=== PATIENT | female | born 1985 | race Caucasian/White ===

== ENCOUNTER → 2017-09-04 11:49 | Outpatient (CLI) | payer OTHER, SELFPAY ==
[2017-09-04 12:54] LABS: Absolute Lymphocyte Count 1.41 X10^3/ul (0.83-4.51); Absolute Neutrophil Count 5.1 X10^3/uL (2.0-7.7); Basophil# 0.01 X10^3/uL; Basophil% 0.1 % (0-1); Eosinophil# 0.07 X10^3/uL; Hemoglobin 13.7 g/dl (12.0-15.0); Lymphocyte # 1.41 X10^3/ul (4.0); Lymphocyte % 19.9 % (19-41); Mean Corp Hgb Conc 33.4 g/gl (32-36); Mean Corpuscular Hgb 29.5 pg (27.0-32.0); Mean Corpuscular Volume 88.2 fL (81-99); Monocyte# 0.47 X10^3/uL; Monocyte% 6.6 % (0-10); Neutrophil # 5.12 X10^3/uL (2.7-7.7); Neutrophil % 72.3 % (47-70); Platelet Count 246 K/mm3 (150-450); RBC Distribution Width CV 12.4 % (11.6-14.6); RBC Distribution Width SD 39.4 fl (35.1-43.9); Red Blood Count 4.65 M/mm3 (4.2-5.4); White Blood Count 7.1 K/mm3 (4.4-11.0)
[2017-09-04 13:05] LABS: POSITIVE COUNT NO; POSITIVE DIFFERENTIAL NO; POSITIVE MORPHOLOGY NO
[2017-09-04 14:08] LABS: HIV - WCH Non-Reactive (Nonreactive); Rubella IgG 36.2 IU/mL
[2017-09-04 15:58] LABS: Chlamydia Trachomatis by PCR Negative (Negative); Neisserai gonorrhoeae by PCR Negative (Negative); Probe Check PASS; Sample Adequacy Control PASS; Specimen Processing Control PASS
[2017-09-07 10:22] LABS: HEPATITIS B SURFACE AG Negative (Negative)
[2017-09-08 08:52] LABS: HPV Reflexed? NOT INDICATED
[2017-09-11 02:40] LABS: Rapid Plasmin Reagin (RPR) NONREACTIVE (NONREACTIVE)
== END ==
PROVIDERS: Visit Provider Obstetrics & Gynecology
DX: Z12.4 Encounter for screening for malignant neoplasm of cervix (principal); Z34.80 Encounter for supervision of other normal pregnancy, unspecified trimester
CPT/HCPCS: 85025; 86592; 86703; 86762; 86850; 86900; 86901; 87086; 87088; 87340; 87491; 87591; 88175; G0145

== ENCOUNTER → 2017-10-02 09:55 | Outpatient (CLI) | payer OTHER, SELFPAY | PROVIDERS: Visit Provider Nurse Practitioner Women's Health | DX: Z34.81 Encounter for supervision of other normal pregnancy, first trimester (principal) | CPT/HCPCS: 36415 ==

== ENCOUNTER → 2018-01-29 11:02 | Outpatient (CLI) | payer OTHER, SELFPAY ==
[2018-01-29 10:24] VITALS: BMI 32.1
[2018-01-29 12:57] LABS: Absolute Lymphocyte Count 1.68 X10^3/ul (0.83-4.51); Absolute Neutrophil Count 6.9 X10^3/uL (2.0-7.7); Basophil# 0.01 X10^3/uL; Basophil% 0.1 % (0-1); Eosinophil# 0.11 X10^3/uL; Eosinophils% 1.2 % (0-5); Hematocrit 33.5 % (37-47); Hemoglobin 10.8 g/dl (12.0-15.0); Lymphocyte # 1.68 X10^3/ul (4.0); Lymphocyte % 18.3 % (19-41); Mean Corp Hgb Conc 32.2 g/gl (32-36); Mean Corpuscular Hgb 29.8 pg (27.0-32.0); Mean Corpuscular Volume 92.3 fL (81-99); Mean Platelet Vol. 10.4 fl (6.2-12.0); Monocyte# 0.52 X10^3/uL; Monocyte% 5.7 % (0-10); Neutrophil # 6.86 X10^3/uL (2.7-7.7); Neutrophil % 74.5 % (47-70); POSITIVE COUNT NO; POSITIVE DIFFERENTIAL NO; POSITIVE MORPHOLOGY NO; Platelet Count 243 K/mm3 (150-450); RBC Distribution Width SD 42.4 fl (35.1-43.9); Red Blood Count 3.63 M/mm3 (4.2-5.4); White Blood Count 9.2 K/mm3 (4.4-11.0)
[2018-01-29 13:13] LABS: Glucose Challenge Gest 1H 50g 120 mg/dL (70-140)
--- OUTSIDE RECORDS SUMMARY | 2018-03-26 09:08 | XMS RPT_ITS ---
:1985 Author Organization OHIP Support Name Relationship Address Phone KAROLINA AUGUSTIN Unavailable [address] + [place] [address] NNAMDI MERCHANT Unavailable [address] +[phone] [place] [address], [place] [address] S Unavailable Unavailable Unavailable KAROLINA AUGUSTIN Unavailable [address] [facility] +[phone] [place] [address] NNAMDI MERCHANT Unavailable [address] +[phone] [place] [address], [place] [address] S Unavailable Unavailable Unavailable KAROLINA AUGUSTIN Unavailable . + [place] . NNAMDI MERCHANT Unavailable [address] +[phone] [place] [address], [place] [address] S Unavailable Unavailable Unavailable MERCHANT, MIRYAM Unavailable [address] + [place] [address] KAROLINA AUGUSTIN Unavailable . + [place] . NNAMDI MERCHANT Unavailable [address] + [place] [address] S Unavailable Unavailable Unavailable KAROLINA AUGUSTIN Unavailable . + [place] . NNAMDI MERCHANT Unavailable [address] + [place] [address] S Unavailable Unavailable Unavailable ELIDA MIRYAM Unavailable [address] + [place] [address] KAROLINA AUGUSTIN Unavailable . + [place] . NNAMDI MERCHANT Unavailable [address] + [place] [address] S Unavailable Unavailable Unavailable KAROLINA AUGUSTIN Unavailable Unavailable + [place] NNAMDI MERCHANT Unavailable [address] + [place] [address] S Unavailable Unavailable Unavailable . Unavailable . + [place] [address] NNAMDI MERCHANT Unavailable [address] + [place] [address] . Unavailable . + [place] [address] NNAMDI MERCHANT Unavailable [address] + [place] [address] . Unavailable Unavailable + [place] [address] NNAMDI MERCHANT Unavailable [address] + [place] [address] Care Team Providers Name Role Phone BANG MILLER Attending Unavailable MARCANTHONY, KAROLINA Nugent Referring Unavailable NO PRIMARY CARE, Primary Care Unavailable BANG MILLER Attending Unavailable MARCANTHONY, KAROLINA E Referring Unavailable NO PRIMARY CARE, Primary Care Unavailable Marcanthony, Karolina Attending Unavailable Primay Care Physicia, No Referring Unavailable Marcanthony, Karolina Attending Unavailable Marcanthony, Karolina Attending Unavailable Lucretia, Micaela Attending Unavailable [place], Micaela Attending Unavailable [place], Micaela Referring Unavailable Primay Care Physicia, No Primary Care Unavailable Lucretia, Micaela Attending Unavailable Primay Care Physicia, No Referring Unavailable Marcanthony, Karolina Attending Unavailable Marcanthony, Karolina Attending Unavailable Marcanthony, Karolina Attending Unavailable Marcanthony, Karolina Attending Unavailable Marcanthony, Karolina Referring Unavailable Primay Care Physicia, No Primary Care Unavailable PROBLEMS PROBLEMS DATE TYPE CONDITION / CODE ATTENDING STATUS SOURCE 02/11/2018 Unknown Z3A.30 - 30 weeks Marcanthony, Active [place] gestation of [facility] / Hospital Z3A.30(ICD-10) Repository 02/11/2018 Unknown Z36.9 - Encounter Marcanthony, Active [place] for [facility] screening, [facility] unspecified / Repository Z36.9(ICD-10) 02/11/2018 Unknown Z34.83 - Encounter Marcanthony, Active [place] for supervision of [facility] other normal Hospital , third Repository trimester / Z34.83(ICD-10) 02/11/2018 Unknown O99.019 - Anemia Marcanthony, Active [place] complicating [facility] , Hospital unspecified Repository trimester / O99.019(ICD-10) 01/29/2018 Unknown Z34.90 - Encounter Marcanthony, Active [place] for supervision of [facility] normal , Hospital unspecified, Repository unspecified trimester / Z34.90(ICD-10) 01/29/2018 Unknown Z23 - Encounter Marcanthony, Active [place] for immunization / [facility] Z23(ICD-10) Hospital Repository 01/29/2018 Unknown Z3A.28 - 28 weeks Marcanthony, Active [place] gestation of [facility] / Hospital Z3A.28(ICD-10) Repository 10/30/2017 Unknown Z34.81 - Encounter LucretiaMicaela peraza Active [place] for supervision of [facility] other normal Hospital , first Repository trimester / Z34.81(ICD-10) 10/30/2017 Unknown Z3A.16 - 16 weeks [place] Micaela Active [place] gestation of [facility] / Hospital Z3A.16(ICD-10) Repository 10/02/2017 Unknown Z3A.12 - 12 weeks [place] Micaela Active [place] gestation of [facility] / Hospital Z3A.12(ICD-10) Repository 09/04/2017 Unknown Z34.80 - Encounter Orlandoanthony, Active [place] for supervision of [facility] other normal Hospital , Repository unspecified trimester / Z34.80(ICD-10) 09/04/2017 Unknown Z12.4 - Encounter Orlandoanthnikunj, Active [place] for screening for [facility] malignant neoplasm Hospital of cervix / Repository Z12.4(ICD-10) PROCEDURES PROCEDURES No Procedure Records FoundRESULTS RESULTS WASTE SALVAGER OFFICE VISIT Observed: 02/11/2018 Status: F Source: [place] REPORT 9:46 AM [facility] [place] [facility] [address] [place] [address]. [address] [place] [address] OFFICE VISIT Date of Service: 02/11/18 MR#: [id number] Acct: [id number] Name: MIRYAM MERCHANT Rep #: [id number] : 1985 Provider: Karolina Tolbert MD Age/Sex: 32/F [place] [facility] [place]: Signed Intake Vital Signs02/11/18 Body Mass Index (BMI) 32.1 02/11/18 Height 5 ft 2 in 02/11/18 Weight: 212 lb 8 oz 02/11/18 Body Mass Index (BMI) 38.8 02/11/18 Blood Pressure 116/70 Intake Visit Reasons: est ob 30w Ct Manager Required: No Is patient in pain?: No Allergies No Known Allergies Allergy (Verified 02/11/18 09:17) Medications vitamins no.42-folic acid 1.4 mg chew tablet,IR - DR,biphase 2 tab PO QDAY tab 09/04/17 [History Confirmed 02/11/18] ondansetron HCl 4 mg tablet 4 mg PO Q4H #60 tab 09/24/17 [Rx Confirmed 02/11/18] Last Menstral Period: 07/10/17 Zika: Zika virus screening: Negative : No PFSH PFSH Surgical History Gallbladder AND bile duct stone with obstruction (Acute) Family History Grandfather Cancer liver Grandmother Cancer pancreatic Mother Hypertension Brother ulcerated coilitis Sister ulcerated coilitis Social History adopted: No household members: spouse number of children: 1 current occupational status: employed 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 DateName GA/Weeks Outcome Route Bth WeighInfant GeLabor LgtAnesthesiDel LocatProvider FOB t n h a n HPI est ob 30w: Details: MIRYAM MERCHANT is a 32 year old who presents for routine OB visit. OB Visit HAYDEN Calculator Estimated Delivery Date 04/16/18 Based on LMP (certain) 07/10/17 Current WG 30w 6d Number 1 Expected Delivery Route/Plan Specific Issue/Plans flu vaccine: given tdap vaccine: given rhogam: na LARC form signed: declines labor support person: Nnamdi pain management: epidural cut cord/dad catch: cord only : yes PP control planned: condoms special requests: Initial Weight: 193 lb Date Weight BP Urine PrFHR FuHt Pres MoCTX DilationFetal StVisit NoProviderComments E ot v te [place] G Effac lucose ed Visit Notes Visit Date: 02/11/18 no vb lof good fm no regular ctx discussed zantac for reflux Karolina Tolbert MD on 02/11/18 Visit Date: 01/29/18 no vb lof good fm noregular ctx cbc gct tdap Karolina Tolbert MD on 01/29/18 Visit Date: 12/24/17 no vb lof good fm no regular ctx Karolina Tolbert MD on 12/27/17 Visit Date: 11/27/17 no vb lof some fm. anatomy scan has repeat ordered to view spine, declines afp testing. Karolina Tolbert MD on 11/27/17 Visit Date: 10/30/17 Nausea improved. No VB, LOF. Doing well. LUCIEN Lassiter on 10/30/17 Visit Date: 10/02/17 Doing well. Nausea manageable with zofran. No VB, LOF LUCIEN Lassiter on 10/02/17 Visit Date: 09/04/17 No visit notes to display ACOG First Trimester First Trimester: Desire for , Alcohol, Tobacco Cessation, Illicit/Recreational Drug/Substance Use, Intimate Partner Violence, Barriers to care, Unstable Housing, Communication Barriers, Environmental/Work Hazards, Anticipated Course of Care, Toxoplasmosis Precations, Use of Any medications, Sexual activity, Exercise, Dental Care, Sauna/Hot tub use, Seat Belt use, Childbirth classes/Hospital facilities, , Travel, Indications for US and Screening for Aneuploidy Diagnostics Diagnostics Labs Blood Type A POSITIVE 09/04/17 Antibody Screen NEGATIVE 09/04/17 Hct 33.5 % (37-47) L 01/29/18 Hgb 10.8 g/dl (12.0-15.0) L 01/29/18 Rubella IgG Antibody 36.2 IU/mL 09/04/17 RPR NONREACTIVE (NONREACTIVE) 09/04/17 Hep Bs Antigen Negative (Negative) 09/04/17 Chlam trachomat DNA PCR Negative (Negative) 09/04/17 N.gonorrhoeae DNA (PCR) Negative (Negative) 09/04/17 Glucose 1 Hr 50 gm 120 mg/dL (70-140) 01/29/18 Miscellaneous Test 10/02/17 Details: HIV: Urine Culture: Sequential Screen: NIPT Screen: Results [email or web address] Office Urine Glucose Negative Last Edit by Lola Pittman on 02/11/18 09:15 Office Urine Protein Negative Last Edit by Lola Pittman on 02/11/18 09:15 [email or web address] Office Urine Glucose Negative Last Edit by Lola Pittman on 02/11/18 09:18 Office Urine Protein Negative Last Edit by Lola Pittman on 02/11/18 09:18 Assessment AND Plan Problems 1. 30 weeks gestation of Z3A.30 MFM US anatomy- Normal US needs repeat in 4 weeks d/t spine- repeat 12/24/17- normal. Patient is scheduled. declines carrier and ntd screening. 2. screening encounter Z36.9 NIPT- Low risk, fraction 8.2%, sex: female 3. Encounter for supervision of other normal in third trimester Z34.83 PRR HAYDEN 04/16/17 Girl zan; PC Omer [place] 4. Anemia during O99.019 Recommend starting Iron Plan movement and labor precautions reviewed. ACOG trimester education reviewed and updated. see problem list details for updated plan management information and see below for orders placed at this visit. [place] appropriate handout given. Orders Orders: Coding Level of Care Code OB Routine Diagnoses 30 weeks gestation of Z3A.30 Weeks of gestation: 30 weeks screening encounter Z36.9 Encounter for supervision of other normal in third trimester Z34.83 Normal : other normal Trimester: third trimester Anemia during O99.019 02/11/18 0946 <Electronically signed by Karolina Tolbert MD> Date Karolina Tolbert MD Cosigner Signature: Date (if applicable) CC: CBC W/DIFF, AUTOMATED Collected: 01/29/2018 Status: F Source: [place] 11:25 AM [facility] TYPE CODE TESTS RESULT OUT OF RANGE REFERENCE UNITS LAB L100.1000 4.4-11.0 K/mm3 Normal WBC 9.2 LAB L100.1200 4.2-5.4 M/mm3 Low RBC 3.63 LAB L100.1300 12.0-15.0 g/dl Low HGB 10.8 LAB L100.1400 37-47 % Low HCT 33.5 LAB L100.1500 81-99 fL Normal MCV 92.3 LAB L100.1600 27.0-32.0 pg Normal MCH 29.8 LAB L100.1700 32-36 g/gl Normal MCHC 32.2 LAB L100.1810 11.6-14.6 % Normal RDW CV 13.0 LAB L100.1820 35.1-43.9 fl Normal RDW SD 42.4 LAB L100.1900 150-450 K/mm3 Normal PLT 243 LAB L100.2000 6.2-12.0 fl Normal MPV 10.4 LAB L100.2100 47-70 % High NEUT% 74.5 LAB L100.2200 19-41 % Low LY% 18.3 LAB L100.2300 0-10 % Normal MONO% 5.7 LAB L100.2400 0-5 % Normal EO% 1.2 LAB L100.2500 0-1 % Normal BASO% 0.1 LAB L100.2550 0.0-0.9 % Normal IM GRAN % 0.200 Result Comment: IG% - Immature Granulocytes (promyelocytes, myelocytes and metamyelocytes) > 1% indicates that a LEFT SHIFT is Present. LAB L100.2620 2.0-7.7 X10 3/uL Normal Absolute Neut 6.9 LAB L100.2720 0.83-4.51 X10 3/ul Normal Absolute Lymph 1.68 Performed By: #### L100.0100 #### [facility] [address] [place], [address] GLUCOSE CHALLENGE GEST Collected: 01/29/2018 Status: F Source: [place] 1H 50G 11:25 AM [facility] [place] TYPE CODE TESTS RESULT OUT OF RANGE REFERENCE UNITS LAB L501.0250 70-140 mg/dL Normal GLU GEST 120 50g 1H Performed By: #### L501.0250 #### [facility] [address] [place], [address] WASTE SALVAGER OFFICE VISIT Observed: 01/29/2018 Status: F Source: [place] REPORT 10:51 AM [facility] [place] [facility] [address] [place] [address] OFFICE VISIT Date of Service: 01/29/18 MR#: [id number] Acct: [id number] Name: MIRYAM MERCHANT Rep #: [id number] : 1985 Provider: Karolina Tolbert MD Age/Sex: 32/F [place] [facility] [place]: Signed Intake Vital Signs01/29/18 Height 5 ft 8 in 01/29/18 Weight: 211 lb 8 oz 01/29/18 Body Mass Index (BMI) 32.1 01/29/18 Blood Pressure 118/72 Intake Visit Reasons: 28 weeks Chief Complaint: est ob Ct Manager Required: No Is patient in pain?: No Allergies No Known Allergies Allergy (Verified 01/29/18 10:25) Medications vitamins no.42-folic acid 1.4 mg chew tablet,IR - DR,biphase 2 tab PO QDAY tab 09/04/17 [History Confirmed 12/24/17] ondansetron HCl 4 mg tablet 4 mg PO Q4H #60 tab 09/24/17 [Rx Confirmed 01/29/18] Last Menstral Period: 07/10/17 Zika: Zika virus screening: Negative : No PFSH PFSH Surgical History Gallbladder AND bile duct stone with obstruction (Acute) Family History Grandfather Cancer liver Grandmother Cancer pancreatic Mother Hypertension Brother ulcerated coilitis Sister ulcerated coilitis Social History adopted: No household members: spouse number of children: 1 current occupational status: employed 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 DateName GA/Weeks Outcome Route Bth WeighInfant GeLabor LgtAnesthesiDel LocatProvider FOB t n h a n HPI 28 weeks: Details: MIRYAM MERCHANT is a 32 year old who presents for routine OB visit. OB Visit HAYDEN Calculator Estimated Delivery Date 04/16/18 Based on LMP (certain) 07/10/17 Current WG 29w 0d Number 1 Expected Delivery Route/Plan Specific Issue/Plans flu vaccine: given tdap vaccine: given rhogam: na LARC form signed: lalo labor support person: Nnamdi pain management: epidural cut cord/dad catch: cord only : yes PP control planned: condoms special requests: Initial Weight: 193 lb Date Weight BP Urine PrFHR FuHt Pres MoCTX DilationFetal StVisit NoProviderComments E ot v te [place] G Effac lucose ed Visit Notes Visit Date: 01/29/18 no vb lof good fm noregular ctx cbc gct tdap Karolina Tolbert MD on 01/29/18 Visit Date: 12/24/17 no vb lof good fm no regular ctx Karolina Tolbert MD on 12/27/17 Visit Date: 11/27/17 no vb lof some fm. anatomy scan has repeat ordered to view spine, declines afp testing. Karolina Tolbert MD on 11/27/17 Visit Date: 10/30/17 Nausea improved. No VB, LOF. Doing well. LUCIEN Lassiter on 10/30/17 Visit Date: 10/02/17 Doing well. Nausea manageable with zofran. No VB, LOF LUCIEN Lassiter on 10/02/17 Visit Date: 09/04/17 No visit notes to display ACOG First Trimester First Trimester: Desire for , Alcohol, Tobacco Cessation, Illicit/Recreational Drug/Substance Use, Intimate Partner Violence, Barriers to care, Unstable Housing, Communication Barriers, Environmental/Work Hazards, Anticipated Course of Care, Toxoplasmosis Precations, Use of Any medications, Sexual activity, Exercise, Dental Care, Sauna/Hot tub use, Seat Belt use, Childbirth classes/Hospital facilities, , Travel, Indications for US and Screening for Aneuploidy Diagnostics Diagnostics Labs Blood Type A POSITIVE 09/04/17 Antibody Screen NEGATIVE 09/04/17 Hct 41.0 % (37-47) 09/04/17 Hgb 13.7 g/dl (12.0-15.0) 09/04/17 Rubella IgG Antibody 36.2 IU/mL 09/04/17 RPR NONREACTIVE (NONREACTIVE) 09/04/17 Hep Bs Antigen Negative (Negative) 09/04/17 Chlam trachomat DNA PCR Negative (Negative) 09/04/17 N.gonorrhoeae DNA (PCR) Negative (Negative) 09/04/17 Miscellaneous Test 10/02/17 Details: HIV: Urine Culture: Sequential Screen: NIPT Screen: Results [email or web address] Office Urine Glucose Negative Last Edit by Laura Rivero on 01/29/18 10:33 Office Urine Protein Negative Last Edit by Laura Rivero on 01/29/18 10:33 Immunizations Boostrix Tdap Performing Provider: Karolina Tolbert MD Administered by: Laura Rivero on 01/29/18 10:32 Dose Route Admin Location Lot Number Expiration Date [facility] Meat Process Worker 0.5 mL IM Left Arm (SQ) [id number] 12/19/24 44082-342-36 [employer] VIS Given Date VIS Publication Date 01/29/18 04/25/14 Eligibility Eligibility Date Assessment AND Plan Problems 1. 28 weeks gestation of Z3A.28 MFM US anatomy- Normal US needs repeat in 4 weeks d/t spine- repeat 12/24/17- normal. Patient is scheduled. declines carrier and ntd screening. 2. screening encounter Z36.9 NIPT- Low risk, fraction 8.2%, sex: female 3. Encounter for supervision of other normal in third trimester Z34.83 PRR HAYDEN 04/16/17 Girl zan; PC Omer [place] Plan movement and labor precautions reviewed. ACOG trimester education reviewed and updated. see problem list details for updated plan management information and see below for orders placed at this visit. [place] appropriate handout given. Orders Orders: Medications Discontinued: Boostrix Tdap (diphth,pertus(acell),tetanus) Discontinue0.5 mL IM ONCE 1 mL 0RF NS Z23 d Reason: Office Medication has been Documented as given Coding Level of Care Code OB Routine Diagnoses 28 weeks gestation of Z3A.28 Weeks of gestation: 28 weeks screening encounter Z36.9 Encounter for supervision of other normal in third trimester Z34.83 Normal : other normal Trimester: third trimester 01/29/18 1051 <Electronically signed by Karolina Tolbert MD> Date Karolina Tolbert MD Cosigner Signature: Date (if applicable) CC: WASTE SALVAGER OFFICE VISIT Observed: 12/27/2017 Status: F Source: [place] REPORT 1:47 AM [facility] [address] [place] [address] OFFICE VISIT Date of Service: 12/24/17 MR#: [id number] Acct: [id number] Name: MIRYAM MERCHANT Rep #: [id number] : 1985 Provider: Karolina Tolbert MD Age/Sex: 32/F [place] [facility]: Signed Intake Vital Signs12/24/17 Height 5 ft 8 in 12/24/17 Weight: 206 lb 2 oz 12/24/17 Body Mass Index (BMI) 31.3 12/24/17 Blood Pressure 118/72 Intake Visit Reasons: 24 weeks Chief Complaint: est ob Ct Manager Required: No Is patient in pain?: No Allergies No Known Allergies Allergy (Verified 12/24/17 10:09) Medications vitamins no.42-folic acid 1.4 mg chew tablet,IR - DR,biphase 2 tab PO QDAY tab 09/04/17 [History Confirmed 12/24/17] ondansetron HCl 4 mg tablet 4 mg PO Q4H #60 tab 09/24/17 [Rx Confirmed 12/24/17] Last Menstral Period: 07/10/17 Zika: Zika virus screening: Negative : No PFSH PFSH Surgical History Gallbladder AND bile duct stone with obstruction (Acute) Family History Grandfather Cancer liver Grandmother Cancer pancreatic Mother Hypertension Brother ulcerated coilitis Sister ulcerated coilitis Social History adopted: No household members: spouse number of children: 1 current occupational status: employed 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 DateName GA/Weeks Outcome Route Bth WeighInfant GeLabor LgtAnesthesiDel LocatProvider FOB t n h a n HPI 24 weeks: Details: MIRYAM MERCHANT is a 32 year old who presents for routine OB visit. OB Visit HAYDEN Calculator Estimated Delivery Date 04/16/18 Based on LMP (certain) 07/10/17 Current WG 24w 2d Number 1 Expected Delivery Route/Plan Specific Issue/Plans flu vaccine: [] tdap vaccine: [] rhogam: [] LARC form signed: [] labor support person: Nnamdi pain management: epidural cut cord/dad catch: cord only : yes PP control planned: [] special requests: [] Initial Weight: Not Recorded Date Weight BP Urine PrFHR FuHt Pres MoCTX DilationFetal StVisit NoProviderComments E ot v te [place] G Effac lucose ed Visit Notes Visit Date: 12/24/17 no vb lof good fm no regular ctx Karolina Tolbert MD on 12/27/17 Visit Date: 11/27/17 no vb lof some fm. anatomy scan has repeat ordered to view spine, declines afp testing. Karolina Tolbert MD on 11/27/17 Visit Date: 10/30/17 Nausea improved. No VB, LOF. Doing well. LUCIEN Lassiter on 10/30/17 Visit Date: 10/02/17 Doing well. Nausea manageable with zofran. No VB, LOF LUCIEN Lassiter on 10/02/17 Visit Date: 09/04/17 No visit notes to display ACOG First Trimester First Trimester: Desire for , Alcohol, Tobacco Cessation, Illicit/Recreational Drug/Substance Use, Intimate Partner Violence, Barriers to care, Unstable Housing, Communication Barriers, Environmental/Work Hazards, Anticipated Course of Care, Toxoplasmosis Precations, Use of Any medications, Sexual activity, Exercise, Dental Care, Sauna/Hot tub use, Seat Belt use, Childbirth classes/Hospital facilities, , Travel, Indications for US and Screening for Aneuploidy Diagnostics Diagnostics Labs Blood Type A POSITIVE 09/04/17 Antibody Screen NEGATIVE 09/04/17 Hct 41.0 % (37-47) 09/04/17 Hgb 13.7 g/dl (12.0-15.0) 09/04/17 Rubella IgG Antibody 36.2 IU/mL 09/04/17 RPR NONREACTIVE (NONREACTIVE) 09/04/17 Hep Bs Antigen Negative (Negative) 09/04/17 Chlam trachomat DNA PCR Negative (Negative) 09/04/17 N.gonorrhoeae DNA (PCR) Negative (Negative) 09/04/17 Miscellaneous Test 10/02/17 Details: HIV: Urine Culture: Sequential Screen: NIPT Screen: Office Meds Flucelvax Quad 3814-2122 (PF) Performing Provider: Karolina Tolbert MD Administered by: Laura Rivero on 12/24/17 10:20 Dose Route Admin Location Lot Number Expiration Date [employer]er 60 mcg IM left arm [id number] 08/29/18 33032-773-04 SEQIRUS Assessment AND Plan Problems 1. 23 weeks gestation of Z3A.23 MFM US anatomy- Normal US needs repeat in 4 weeks d/t spine. Patient is scheduled. declines carrier and ntd screening. 2. screening encounter Z36.9 NIPT- Low risk, fraction 8.2%, sex: female 3. Encounter for supervision of other normal in first trimester Z34.81 PRR HAYDEN 2/15/18 Girl; PC Omer [place] Plan ACOG trimester education reviewed and updated. see problem list details for updated plan management information and see below for orders placed at this visit. [place] appropriate handout given. Orders Orders: Medications Discontinued: Flucelvax Quad 1814-2689 (PF) (flu vac qs 2018(4 yr60 mcg (0.5 mL) IM ONCE 1 mL 0RF NS Z23 up)CD(PF)) Discontinued Reason: Office Medicat ion has been Documented as given Coding Level of Care Code OB Routine Diagnoses 23 weeks gestation of Z3A.23 Weeks of gestation: 23 weeks screening encounter Z36.9 Encounter for supervision of other normal in first trimester Z34.81 Normal : other normal Trimester: first trimester 12/27/17 0147 <Electronically signed by Karolina Tolbert MD> Date Karolina Tolbert MD Cosigner Signature: Date (if applicable) CC: WASTE SALVAGER OFFICE VISIT Observed: 11/27/2017 Status: F Source: [place] REPORT 9:42 AM [facility] [address] [place] [address] OFFICE VISIT Date of Service: 11/27/17 MR#: [id number] Acct: [id number] Name: MIRYAM MERCHANT Rep #: [id number] : 1985 Provider: Karolina Tolbert MD Age/Sex: 32/F [place] [facility] [place]: Signed Intake Vital Signs11/27/17 Height 5 ft 8 in 11/27/17 Weight: 200 lb 4 oz 11/27/17 Body Mass Index (BMI) 30.4 11/27/17 Blood Pressure 122/68 H Intake Visit Reasons: [address] Required: No Is patient in pain?: No Allergies No Known Allergies Allergy (Verified 11/27/17 09:33) Medications vitamins no.42-folic acid 1.4 mg chew tablet,IR - DR,biphase 2 tab PO QDAY tab 09/04/17 [History Confirmed 11/27/17] ondansetron HCl 4 mg tablet 4 mg PO Q4H #60 tab 09/24/17 [Rx Confirmed 11/27/17] Last Menstral Period: 07/10/17 Zika: Zika virus screening: Positive (FLA-went to [place]) : No PFSH PFSH Surgical History Gallbladder AND bile duct stone with obstruction (Acute) Family History Grandfather Cancer liver Grandmother Cancer pancreatic Mother Hypertension Brother ulcerated coilitis Sister ulcerated coilitis Social History adopted: No household members: spouse number of children: 1 current occupational status: employed 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 DateName GA/Weeks Outcome Route Bth WeighInfant GeLabor LgtAnesthesiDel LocatProvider FOB t n h a n HPI 20 weeks: Details: MIRYAM MERCHANT is a 32 year old who presents for routine OB visit. OB Visit HAYDEN Calculator Estimated Delivery Date 04/16/18 Based on LMP (certain) 07/10/17 Current WG 20w 0d Number 1 Expected Delivery Route/Plan Specific Issue/Plans flu vaccine: [] tdap vaccine: [] rhogam: [] LARC form signed: [] labor support person: Nnamdi pain management: epidural cut cord/dad catch: cord only : yes PP control planned: [] special requests: [] Initial Weight: Not Recorded Date Weight BP Urine PrFHR FuHt Pres MoCTX DilationFetal StVisit NoProviderComments E ot v te GA G Effac lucose ed Visit Notes Visit Date: 11/27/17 no vb lof some fm. anatomy scan has repeat ordered to view spine, declines afp testing. Karolina Tolbert MD on 11/27/17 Visit Date: 10/30/17 Nausea improved. No VB, LOF. Doing well. CHANTEL LassiterC on 10/30/17 Visit Date: 10/02/17 Doing well. Nausea manageable with zofran. No VB, LOF CHANTEL LassiterC on 10/02/17 Visit Date: 09/04/17 No visit notes to display ACOG First Trimester First Trimester: Desire for , Alcohol, Tobacco Cessation, Illicit/Recreational Drug/Substance Use, Intimate Partner Violence, Barriers to care, Unstable Housing, Communication Barriers, Environmental/Work Hazards, Anticipated Course of Care, Toxoplasmosis Precations, Use of Any medications, Sexual activity, Exercise, Dental Care, Sauna/Hot tub use, Seat Belt use, Childbirth classes/Hospital facilities, , Travel, Indications for US and Screening for Aneuploidy Diagnostics Diagnostics Labs Blood Type A POSITIVE 09/04/17 Antibody Screen NEGATIVE 09/04/17 Hct 41.0 % (37-47) 09/04/17 Hgb 13.7 g/dl (12.0-15.0) 09/04/17 Rubella IgG Antibody 36.2 IU/mL 09/04/17 RPR NONREACTIVE (NONREACTIVE) 09/04/17 Hep Bs Antigen Negative (Negative) 09/04/17 Chlam trachomat DNA PCR Negative (Negative) 09/04/17 N.gonorrhoeae DNA (PCR) Negative (Negative) 09/04/17 Miscellaneous Test 10/02/17 Details: HIV: Urine Culture: Sequential Screen: NIPT Screen: Results [id number] Office Urine Glucose Negative Last Edit by Connie Mark on 11/27/17 09:35 Office Urine Protein Negative Last Edit by Connie Mark on 11/27/17 09:35 Assessment AND Plan Problems 1. 16 weeks gestation of Z3A.16 MFM US anatomy- Normal US needs repeat in 4 weeks d/t spine. Patient is scheduled. declines carrier and ntd screening. 2. Encounter for supervision of other normal in first trimester Z34.81 PRR HAYDEN 04/16/17 Girl; PC Omer Rich 3. screening encounter Z36.9 NIPT- Low risk, fraction 8.2%, sex: female Plan ACOG trimester education reviewed and updated. see problem list details for updated plan management information and see below for orders placed at this visit. GA appropriate handout given. Orders Orders: Coding Level of Care Code OB Routine Diagnoses 16 weeks gestation of Z3A.16 Weeks of gestation: 16 weeks Encounter for supervision of other normal in first trimester Z34.81 Normal : other normal Trimester: first trimester screening encounter Z36.9 11/27/17 0942 <Electronically signed by Karolina Tolbert MD> Date Karolina Tolbert MD Cosigner Signature: Date (if applicable) CC: WASTE SALVAGER OFFICE VISIT Observed: 10/30/2017 Status: F Source: [facility] REPORT 10:19 AM [facility] [address] [place] [address] OFFICE VISIT Date of Service: 10/30/17 MR#: [id number] Acct: [id number] Name: MIRYAM MERCHANT Rep #: [id number] : 1985 Provider: SHALINI Boykin Age/Sex: 32/F [place] [facility] [place]: Signed Intake Vital Signs10/30/17 Height 5 ft 8 in 10/30/17 Weight: 195 lb 8 oz 10/30/17 Body Mass Index (BMI) 29.7 10/30/17 Blood Pressure 122/77 Intake Visit Reasons: [address] Manager Required: No Accompanied by: Is patient in pain?: No Allergies No Known Allergies Allergy (Verified 10/30/17 09:54) Medications vitamins no.42-folic acid 1.4 mg chew tablet,IR - DR,biphase 2 tab PO QDAY tab 09/04/17 [History Confirmed 10/30/17] ondansetron HCl 4 mg tablet 4 mg PO Q4H #60 tab 09/24/17 [Rx Confirmed 10/30/17] Last Menstral Period: 07/10/17 Zika: Zika virus screening: Negative : No PFSH PFSH Surgical History Gallbladder AND bile duct stone with obstruction (Acute) Family History Grandfather Cancer liver Grandmother Cancer pancreatic Mother Hypertension Brother ulcerated coilitis Sister ulcerated coilitis Social History adopted: No household members: spouse number of children: 1 current occupational status: employed 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 DateName GA/Weeks Outcome Route Bth WeighInfant GeLabor LgtAnesthesiDel LocatProvider FOB t n h a n HPI 16 weeks: Details: MIRYAM MERCHANT is a 32 year old who presents for routine OB visit. OB Visit HAYDEN Calculator Estimated Delivery Date 04/16/18 Based on LMP (certain) 07/10/17 Current WG 16w 0d Number 1 Expected Delivery Route/Plan Specific Issue/Plans flu vaccine: [] tdap vaccine: [] rhogam: [] LARC form signed: [] labor support person: Nnamdi pain management: epidural cut cord/dad catch: cord only : yes PP control planned: [] special requests: [] Initial Weight: Not Recorded Date Weight BP Urine PrFHR FuHt Pres MoCTX DilationFetal StVisit NoProviderComments E ot v te GA G Effac lucose ed Visit Notes Visit Date: 10/30/17 Nausea improved. No VB, LOF. Doing well. LUCIEN Lassiter on 10/30/17 Visit Date: 10/02/17 Doing well. Nausea manageable with zofran. No VB, LOF LUCIEN Lassiter on 10/02/17 Visit Date: 09/04/17 No visit notes to display ACOG First Trimester First Trimester: Desire for , Alcohol, Tobacco Cessation, Illicit/Recreational Drug/Substance Use, Intimate Partner Violence, Barriers to care, Unstable Housing, Communication Barriers, Environmental/Work Hazards, Anticipated Course of Care, Toxoplasmosis Precations, Use of Any medications, Sexual activity, Exercise, Dental Care, Sauna/Hot tub use, Seat Belt use, Childbirth classes/Hospital facilities, , Travel, Indications for US and Screening for Aneuploidy Diagnostics Diagnostics Labs Blood Type A POSITIVE 09/04/17 Antibody Screen NEGATIVE 09/04/17 Hct 41.0 % (37-47) 09/04/17 Hgb 13.7 g/dl (12.0-15.0) 09/04/17 Rubella IgG Antibody 36.2 IU/mL 09/04/17 RPR NONREACTIVE (NONREACTIVE) 09/04/17 Hep Bs Antigen Negative (Negative) 09/04/17 Chlam trachomat DNA PCR Negative (Negative) 09/04/17 N.gonorrhoeae DNA (PCR) Negative (Negative) 09/04/17 Miscellaneous Test 10/02/17 Details: HIV: Urine Culture: Sequential Screen: NIPT Screen: Results [id number] Office Urine Glucose Negative Last Edit by Lola Pittman on 10/30/17 09:51 Office Urine Protein Negative Last Edit by Lola Pittman on 10/30/17 09:51 Assessment AND Plan Problems 1. Encounter for supervision of other normal in first trimester Z34.81 PRR HAYDEN 04/16/17 Girl; PC Omer Rich 2. screening encounter Z36.9 NIPT- Low risk, fraction 8.2%, sex: female 3. 16 weeks gestation of Z3A.16 MFM order US anatomy Plan Orders placed: anatomy US with MFM Reviewed of labor precautions, movement/kick counts ACOG trimester education reviewed and updated See problem list details for updated plan of care Gestational age appropriate handout given RTO: 4 weeks Orders Orders: Coding Level of Care Code OB Routine Diagnoses Encounter for supervision of other normal in first trimester Z34.81 Normal : other normal Trimester: first trimester screening encounter Z36.9 16 weeks gestation of Z3A.16 Weeks of gestation: 16 weeks 10/30/17 1019 <Electronically signed by Micaela MCGRAW> Date Micaela MCGRAW Cosigner Signature: Date (if applicable) CC: MISCELLANEOUS LAB Collected: 10/02/2017 Status: F Source: [facility] PROCEDURE 10:08 [place] [facility] [place] Order Comment: Test(s) Ordered: [place] TYPE CODE TESTS RESULT OUT OF RANGE REFERENCE UNITS LAB L801.1541 Normal [facility] [place] [facility] TEST Result Comment: Sent directly to testing facility per ordering physician. 10/12/17 1420 MYOUNG Performed By: #### L801.1541 #### [facility] [address] [place], [address] WASTE SALVAGER OFFICE VISIT Observed: 10/02/2017 Status: F Source: [facility] REPORT 9:48 AM [facility] [place] [facility] [address] [place] [address] OFFICE VISIT Date of Service: 10/02/17 MR#: [id number] Acct: [id number] Name: MIRYAM MERCHANT Rep #: [id number] : 1985 Provider: SHALINI Boykin Age/Sex: 31/F [place] [facility] [place]: Signed Intake Vital Signs10/02/17 Height 5 ft 8 in 10/02/17 Weight: 191 lb 6 oz 10/02/17 Body Mass Index (BMI) 29.0 10/02/17 Blood Pressure 124/80 Intake Visit Reasons: [address] Manager Required: No Is patient in pain?: No Allergies No Known Allergies Allergy (Verified 10/02/17 09:25) Medications vitamins no.42-folic acid 1.4 mg chew tablet,IR - DR,biphase 2 tab PO QDAY tab 09/04/17 [History Confirmed 10/02/17] ondansetron HCl 4 mg tablet 4 mg PO Q4H #60 tab 09/24/17 [Rx Confirmed 10/02/17] Last Menstral Period: 07/10/17 Zika: Zika virus screening: Negative : No PFSH PFSH Surgical History Gallbladder AND bile duct stone with obstruction (Acute) Family History Grandfather Cancer liver Grandmother Cancer pancreatic Mother Hypertension Brother ulcerated coilitis Sister ulcerated coilitis Social History adopted: No household members: spouse number of children: 1 current occupational status: employed 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 DateName GA/Weeks Outcome Route Bth WeighInfant GeLabor LgtAnesthesiDel LocatProvider FOB t n h a n HPI 12 weeks: Details: MIRYAM MERCHANT is a 31 year old who presents for routine OB visit. OB Visit HAYDEN Calculator Estimated Delivery Date 04/16/18 Based on LMP (certain) 07/10/17 Current WG 12w 0d Number 1 Expected Delivery Route/Plan Specific Issue/Plans flu vaccine: [] minichart given: [] tdap vaccine: [] rhogam: [] LARC form signed: [] labor support person: [] pain management: [] cut cord/dad catch: [] : [] PP control planned: [] special requests: [] Initial Weight: Not Recorded Date Weight BP Urine PFHR FuHt Pres MCTX DilatioFetal SVisit NProvideComment rot ov n t ote r s EGA Ef Gluco faced se 09/04/1192 lb 124/76 8 8 oz 8w 0d Visit Notes Visit Date: 10/02/17 Doing well. Nausea manageable with zofran. No VB, LOF Micaela Boykin NP-Apollo on 10/02/17 Visit Date: 09/04/17 No visit notes to display ACOG First Trimester First Trimester: Desire for , Alcohol, Tobacco Cessation, Illicit/Recreational Drug/Substance Use, Intimate Partner Violence, Barriers to care, Unstable Housing, Communication Barriers, Environmental/Work Hazards, Anticipated Course of Care, Toxoplasmosis Precations, Use of Any medications, Sexual activity, Exercise, Dental Care, Sauna/Hot tub use, Seat Belt use, Childbirth classes/Hospital facilities, , Travel, Indications for US and Screening for Aneuploidy Diagnostics Diagnostics Labs Blood Type A POSITIVE 09/04/17 Antibody Screen NEGATIVE 09/04/17 Hct 41.0 % (37-47) 09/04/17 Hgb 13.7 g/dl (12.0-15.0) 09/04/17 Rubella IgG Antibody 36.2 IU/mL 09/04/17 RPR NONREACTIVE (NONREACTIVE) 09/04/17 Hep Bs Antigen Negative (Negative) 09/04/17 Chlam trachomat DNA PCR Negative (Negative) 09/04/17 N.gonorrhoeae DNA (PCR) Negative (Negative) 09/04/17 Details: HIV: Urine Culture: Sequential Screen: NIPT Screen: Results [id number] Office Urine Glucose Negative Last Edit by Connie Mark on 10/02/17 09:27 Office Urine Protein Negative Last Edit by Connie Mark on 10/02/17 09:27 Assessment AND Plan Problems 1. Encounter for supervision of other normal in first trimester Z34.81 HAYDEN 04/16/17 PC Omer Rich 2. 12 weeks gestation of Z3A.12 Plan Orders placed: NIPT Reviewed of labor precautions, movement/kick counts ACOG trimester education reviewed and updated See problem list details for updated plan of care Gestational age appropriate handout given RTO: 4 weeks Orders Orders: Coding Level of Care Code OB Routine Diagnoses Encounter for supervision of other normal in first trimester Z34.81 Normal : other normal Trimester: first trimester 12 weeks gestation of Z3A.12 10/02/17 0948 <Electronically signed by Micaela MCGRAW> Date Micaela Boykin LIVE IN CAREGIVER-C Cosigner Signature: Date (if applicable) CC: CBC W/DIFF, AUTOMATED Collected: 09/04/2017 Status: F Source: [facility] 11:51 AM [facility] [place] TYPE CODE TESTS RESULT OUT OF RANGE REFERENCE UNITS LAB L100.1000 4.4-11.0 K/mm3 Normal WBC 7.1 LAB L100.1200 4.2-5.4 M/mm3 Normal RBC 4.65 LAB L100.1300 12.0-15.0 g/dl Normal HGB 13.7 LAB L100.1400 37-47 % Normal HCT 41.0 LAB L100.1500 81-99 fL Normal MCV 88.2 LAB L100.1600 27.0-32.0 pg Normal MCH 29.5 LAB L100.1700 32-36 g/gl Normal MCHC 33.4 LAB L100.1810 11.6-14.6 % Normal RDW CV 12.4 LAB L100.1820 35.1-43.9 fl Normal RDW SD 39.4 LAB L100.1900 150-450 K/mm3 Normal PLT 246 LAB L100.2000 6.2-12.0 fl Normal MPV 10.0 LAB L100.2100 47-70 % High NEUT% 72.3 LAB L100.2200 19-41 % Normal LY% 19.9 LAB L100.2300 0-10 % Normal MONO% 6.6 LAB L100.2400 0-5 % Normal EO% 1.0 LAB L100.2500 0-1 % Normal BASO% 0.1 LAB L100.2550 0.0-0.9 % Normal IM GRAN % 0.100 Result Comment: IG% - Immature Granulocytes (promyelocytes, myelocytes and metamyelocytes) > 1% indicates that a LEFT SHIFT is Present. LAB L100.2620 2.0-7.7 X10 3/uL Normal Absolute Neut 5.1 LAB L100.2720 0.83-4.51 X10 3/ul Normal Absolute Lymph 1.41 Performed By: #### L100.0100 #### [facility] [address] [place] [address], [address] TYPE AND SCREEN Collected: 09/04/2017 Status: F Source: [place] 11:51 [facility] REPOSITORY Order Comment: Reason for Type AND Screen/Red Cells: Surgery? N TYPE CODE TESTS RESULT OUT OF RANGE REFERENCE UNITS LAB B100.1300 A Normal BLOOD TYPE PT POSITIVE LAB B100.7000 Normal ANTIBODY NEGATIVE SCREEN Performed By: #### B101.7400 #### [facility] [address] [place] [address] RUBELLA IGG Collected: 09/04/2017 Status: F Source: [place] 11:51 [facility] REPOSITORY TYPE CODE TESTS RESULT OUT OF RANGE REFERENCE UNITS LAB L509.4000 IU/mL Normal Rubella IgG 36.2 Result Comment: Antibody results Interpretation of Immune Status < 5 IU/ml Presumed Non-immune 5 - < 10 IU/ml Equivocal > or = 10 IU/ml Presumed Immune Performed By: #### L509.4000, L3890.6005, L700.5000 #### [facility] [address] [place] [address], [address] #### L3100.0390 #### [facility] (refer to report for specific site) refer to report for address and phone number HIV - [facility] Collected: 09/04/2017 Status: F Source: [place] 11:51 [facility] REPOSITORY TYPE CODE TESTS RESULT OUT OF RANGE REFERENCE UNITS LAB L3890.6005 Nonreactive Normal HIV - [facility] Non-Reactive Performed By: #### L509.4000, L3890.6005, L700.5000 #### [facility] [address] [place] [address], [address] #### L3100.0390 #### [facility] (refer to report for specific site) refer to report for address and phone number HEPATITIS B SURFACE Collected: 09/04/2017 Status: F Source: [facility] AG 11:51 AM [facility] [place] TYPE CODE TESTS RESULT OUT OF RANGE REFERENCE UNITS LAB L3100.0400 Negative Normal HB Negative SURF AG Result Comment: Performed at: [facility] [id number] Tar Worker: Josh Morillo PhD, Phone: [phone] Performed By: #### L509.4000, L3890.6005, L700.5000 #### [facility] [address] [place], [place], [address] #### L3100.0390 #### [facility] (refer to report for specific site) refer to report for address and phone number RAPID PLASMIN REAGIN Collected: 09/04/2017 Status: F Source: [facility] (RPR) 11:51 AM [facility] [place] TYPE CODE TESTS RESULT OUT OF REFERENCE UNITS RANGE LAB L700.5000 NONREACTIVE NONREACTIVE Normal RPR Performed By: #### L509.4000, L3890.6005, L700.5000 #### [facility] [address] [place], [place], [address] #### L3100.0390 #### [facility] (refer to report for specific site) refer to report for address and phone number WASTE SALVAGER OFFICE VISIT Observed: 09/04/2017 Status: F Source: [facility] REPORT 11:46 AM [facility] [place] [facility] [address] [place] [address] OFFICE VISIT Date of Service: 09/04/17 MR#: [id number] Acct: [id number] Name: MIRYAM MERCHANT Ion Rep #: [id number] : 1985 Provider: Karolina Tolbert MD Age/Sex: 31/F [place] [facility]: Signed Intake Vital Signs09/04/17 Height 5 ft 8 in 09/04/17 Weight: 193 lb 8 oz 09/04/17 Body Mass Index (BMI) 29.4 09/04/17 Blood Pressure 124/76 Intake Visit Reasons: lmp 07/10/17 Accompanied by: Is patient in pain?: No Allergies No Known Allergies Allergy (Unverified 09/04/17 10:39) Medications vitamins no.42-folic acid 1.4 mg chew tablet,IR - DR,biphase 2 tab PO QDAY tab 09/04/17 [History Confirmed 09/04/17] promethazine 12.5 mg tablet 12.5 mg PO Q6H PRN 09/04/17 [History Confirmed 09/04/17] Last Menstral Period: 07/10/17 Zika: Zika virus screening: Negative Nurse's Note: Pt. 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 DateName GA/Weeks Outcome Route Bth WeighInfant GeLabor LgtAnesthesiDel LocatProvider FOB t n h a n HPI lmp 07/10/17: Details: MIRYAM MERCHANT is a 31 year old who presents for New OB visit. OB Visit HAYDEN Calculator Estimated Delivery Date 04/16/18 Based on LMP (certain) 07/10/17 Current WG 8w 0d Number 1 Comments: crl 16.3mm fht 160 viable single IUP Expected Delivery Route/Plan Specific Issue/Plans flu vaccine: [] minichart given: [] tdap vaccine: [] rhogam: [] LARC form signed: [] labor support person: [] pain management: [] cut cord/dad catch: [] : [] PP control planned: [] special requests: [] Initial Weight: Not Recorded Date Weight BP Urine PrFHR FuHt Pres MoCTX DilationFetal StVisit NoProviderComments E ot v te GA G Effac lucose ed Menstrual History Last Menstral Period: 07/10/17 Reported LMP: definite Normal amount/duration: Yes On hormonal BC at conception: No Antepartum Record Genetic Screening: Congenital Heart Defect: Other, Neural Tube Defect: Other, Hemoglobinopathy Or Carrier: Other, Cystic Fibrosis: Other, Chromosome Abnormality: Other, Zhao-Sachs: Other, Hemophilia: Other, Intellectual Disability/Autism: Other, Recurrent Loss/Stillbirth: Other, Other Structural Defect: Other, Other Genetic Disease: Other, Maternal Metabolic Disorder: Other Infection History: Live with someone with TB or Exposed to TB: No, Patient or Partner has history of Genital Herpes: No, Rash or Viral illness since last mentrual period: No, Prior GBS-Infected child: No, History of STD: No, HIV Infection: No, History of Hepatitis: No, Recent travel outside of : No, Concern for Hep exposure: No, Varicella immune: Yes Medical History Medical History: Negative: Diabetes, Hypertension, Heart disease, Auto-immune disorder, Kidney disease/UTI, Neurologic/epilepsy, Psychiatric, Depression/ depression, Hepatitis/liver disease, Varicosities/phlebitis, Thyroid dysfunction, Trauma/domestic violence, History of blood transfusions, D (Rh) Sensitized, Pulmonary (e.g.,TB,Asthma), Seasonal allergies, Drug/latex allergies/reactions, Breast, Concrete Sculptor surgery, Operations/hospitalizations, Anesthetic complications, History of abnormal pap, Uterine anomaly/jessi, Infertility, Anti-retroviral treatment, Relevant family history, Other ACOG First Trimester First Trimester: Desire for , Alcohol, Tobacco Cessation, Illicit/Recreational Drug/Substance Use, Intimate Partner Violence, Barriers to care, Unstable Housing, Communication Barriers, Environmental/Work Hazards, Anticipated Course of Care, Nurtrition and weight gain, Toxoplasmosis Precations, Use of Any medications, Sexual activity, Exercise, Dental Care, Sauna/Hot tub use, Seat Belt use, Childbirth classes/Hospital facilities, , Travel, Indications for US and Screening for Aneuploidy ROS Const Denies fever(s), Reports system reviewed and no additional complaints, except as docu, Reports fatigue Eyes Reports system reviewed and no additional complaints, except as docu ENT Reports system reviewed and no additional complaints, except as docu Card Denies chest pain, Denies shortness of breath Resp Reports system reviewed and no additional complaints, except as docu, Denies shortness of breath, Denies cough GI Reports nausea, Denies abdominal pain Reports system reviewed and no additional complaints, except as docu Musc Reports system reviewed and no additional complaints, except as docu Skin/Breast Reports system reviewed and no additional complaints, except as docu Neuro Yes system reviewed and no additional complaints, except as docu Psych Reports system reviewed and no additional complaints, except as docu Endo Reports fatigue, Reports system reviewed and no additional complaints, except as docu Exam Const General: healthy appearing, comfortable, no acute distress Orientation: alert [facility] Head: normal to inspection, atraumatic, normocephalic Ears: external ears normal, hearing grossly normal bilaterally Nose: nares normal, external nose normal Mouth: oral mucosae normal Teeth and gingiva: dentition normal Eyes General: appearance normal, both eyes and all related structures Neck Neck: no lymphadenopathy, supple, normal visual inspection Thyroid: thyroid normal Chest Chest palpation AND inspection: normal inspection of the chest Breast inspection: normal inspection of the breasts, normal inspection of the axillae Breast palpation: normal palpation of the breasts, normal palpation of the axillae Resp Effort AND Inspection: normal respiratory effort GI Inspection: normal to inspection Palpation: soft, no hepatosplenomegaly General: bladder normal to palpation External Female Exam: normal external appearance, normal appearance of the urethra Urethra: normal appearance of the urethra Speculum Exam - Vagina: normal appearance of the vagina, normal vaginal discharge Speculum Exam - Cervix: normal appearance of the cervix Bimanual Exam- Vagina AND Uterus: bladder normal to palpation, normal bimanual exam, uterus non-tender, other Bimanual Exam- Adnexa, other: adnexae non-tender Skin General: no rashes or lesions noted Neuro Motor: muscle tone normal throughout, no movement abnormalities noted Extrem General: normal to inspection, full ROM Assessment AND Plan Problems 1. Encounter for supervision of other normal in first trimester Z34.81 HAYDEN 04/16/17 PC Omer Rich Plan Patient oriented to practice and discussed care expectations and screenings. [facility] [place] offered [place]. labs and 19-20 week anatomy ultrasound ordered. see problem list details for plan information. Genetic screening offered to patient and patient chose: discussed and to decide Orders Orders: Supplemental Info ACOG book given and patient encouraged to read about nutrition, exercise, weight gain, and food avoidance in . Coding Level of Care Code OB Routine Diagnoses Encounter for supervision of other normal in first trimester Z34.81 Normal : other normal Trimester: first trimester 09/04/17 1146 <Electronically signed by Karolina Tolbert MD> Date Karolina Tolbert MD Cosigner Signature: Date (if applicable) CC: CT/NG WCH BY PCR Collected: 09/04/2017 Status: F Source: [place] 10:20 AM [facility] [place] CODE TESTS RESULT OUT OF RANGE REFERENCE UNITS LAB L8200.2100 Negative Normal Chlam Negative Trac PCR LAB L8200.2200 Negative Normal NG by Negative PCR Performed By: #### L8200.2000 #### [facility] [address] [facility] [place], [place], [address] Observed: 09/04/2017 Status: F Source: [place] CULTURE, URINE 10:20 AM [facility] [place] Urine Culture ORGANISM 1: Mixed Gram Positive Organisms [place] Count 1000-10,000 MIX CULTURE Mixed contaminants. Submit a new specimen if indicated. Performed By: #### M100.0650 #### [facility] [address] [facility] [place], [address] PAP I-G W/RFX Collected: 09/04/2017 Status: F Source: [place] HRHPV-APTIMA 10:20 AM [facility] [place] Order Comment: CYTOLOGY INFORMATION: - CLINICAL INFORMATION: - DATE LMP/MENOPAUSE: 07-10-17 LMP - COLLECTION VIAL: Thin Prep Vial - DIRECTOR OF SOFTWARE DEVELOPMENT SOURCE: CERVICAL - COLLECTION TECHNIQUE: CX BROOM ONLY Specimen Comment: [id number] Specimen Comment: No. of containers..01 ThinPrep Vial TYPE CODE TESTS RESULT OUT OF RANGE REFERENCE UNITS LAB L7400.0800 . Normal DIAGN Comment Result Comment: NEGATIVE FOR INTRAEPITHELIAL LESION AND MALIGNANCY. LAB L7400.0900 . Normal ADEQ Comment Result Comment: Satisfactory for evaluation. Endocervical and/or squamous metaplastic cells (endocervical component) are present. LAB L7400.1400 . Normal PERFORM Comment Result Comment: Mala Mcdonald Product Technician (ASCP) LAB L7400.2575 . Normal TEST METHOD Comment Result Comment: This liquid based ThinPrep(R) pap test was screened with the use of an image guided system. LAB L7400.2600 . Normal . COMM LAB L7400.2700 . Normal PAPSMR Comment Result Comment: The Pap smear is a screening test designed to aid in the detection of premalignant and malignant conditions of the uterine cervix. It is not a diagnostic procedure and should not be used as the sole means of detecting cervical cancer. Both false-positive and false-negative reports do occur. LAB L7400.2800 . Normal HPV RFLX Comment Result Comment: The HPV DNA reflex criteria were not met with this specimen result therefore, no HPV testing was performed. Performed at: - [facility] [id number] Tar Worker: Lydia Haque MD, Phone: [phone] Performed By: #### L7400.0353 #### [facility] (refer to report for specific site) refer to report for address and phone number PROGRESS Observed: 07/29/2017 Status: COMPLETED Source: [place] 12:54 PM [facility] [place] REPOSITORY HNO ID: [id number] Author: Roxy Taylor Provider Service: (none) Author Type: Physician Type: Progress Notes Filed: 07/29/2017 8:58 AM Note Text: null (CCF:Not available [id number]) Visit Summary for Miryameverton Merchant - Gender: Female - Date of : 1985 ( ) Date: [id number] - Duration: 3 minutes Patient: Miryam Merchant Provider: Anderson Guevara Patient Contact Information Address [address] [place] [address]; [place] [phone] Visit Topics Poison abigail treatment [Added By: Self - 2017-07-29] Triage Questions Please provide your current address. We need this on file in case of a medical emergency.Answer [[address] [place] [address]] Conversation Transcripts [Notification] You are connected with Anderson Guevara, Family Physician.[Notification] Patient has shared 1 file[Notification] Miryam Merchant is located in [place].[Notification] Miryam Merchant has shared health history...[Notification] Anderson Guevara has added a diagnosis/procedure code (see the Visit Notes tab).[Notification] Anderson Guevara has added a diagnosis/procedure code (see the Visit Notes tab).[Notification] Anderson Guevara has added a prescription (see the Visit Notes tab). Diagnosis Unspecified contact dermatitis due to plants, except food Value: L25.5 Code: ICD-10-CM Procedures Value: 29691 Code: CPT-4 ONLINE E/M BY PHYS/QHP Medications Prescribed prednisone Strength : 20 mg Frequency : Patient Instructions : 2 tabs daily for 7 days then 1 tab daily Refills : 0 Instructions to the Pharmacist : Substitutions allowed Provider Notes We strongly encourage you to share the following record of today's visit with your primary care physician. Contact phone number:Mode of Communication: Video and pictures HPI: This week patient has developed acute onset of red, itchy, rash with blisters over areas of exposed extremities. No shortness of breath, swelling, warmth, fever or wheeze. PMH: NonePSH: gallbladderMeds: NoneAllergies: NKMALMP: 2 weeks agoExam:Gen: Well appearing, in no acute distressSkin: Multiple patches of erythema with moist vesicles over exposed extremitiesAssessment: Poison abigail, too diffuse for topical treatment Diagnosis Code: Contact dermatitis/eczema due to plants, except food L25.5Plan: 1.Medication as described belowPrednisone 20mg 2 tabs daily for 7 days, then 1 tab daily for 7 days2.Discussed options as well as precautionsFollow up:1.If there are any questions or problems with the prescription, call [phone] at any time for assistance. 2.Please re-connect for another online visit or see an in-person provider should your symptoms worsen or not improving 5-7days. The rash, and itching may wax and wane during this time. 3.Please print a copy of this note and send it to your regular doctor, or take it to your next visit so it may be included in your medical record. Patient voiced understanding and agrees to plan. Please see your PCP on an annual basis Electronically signed by: Anderson Guevara( ) TRACI Observed: 02/27/2017 Status: COMPLETED Source: [place] 10:15 AM [facility] REPOSITORY Office Visit ([place]) MIRYAM MERCHANT ([id number]) 1985 F Date Time Provider Department 02/27/17 10:15 AM JEAN BHAKTA) RUSTY During your visit today, we recorded the following information about you: Temperature Pulse Respiration Blood pressure 98.3 degrees 83/minute 18/minute 136/80 Weight Height Last Period 88.5 kg 1.702 m 02/10/17 Jean Bhakta PA-C, PA 02/27/2017 10:23 AM Signed 02/27/2017 Patient presents with: Cough: x 3 weeks SUBJECTIVE: This is a 31 year old that is here today for acute onset cough x 3 weeks, but with no wheezing, shortness of breath, increased WOB, or chest pain. . Denies fever, chills, sweats, or fatigue. Asthma: none Pneumonia: none Tobacco: none Pain on scale of 0-10 with 0 being no pain and 10 being greatest pain: 0 Nothing makes the symptoms better. Nothing makes them worse. Self-treatment:. Mucinex, williamqujaqui The severity is mild and the symptoms are not improving. The patient did not have a similar problem in the last 3 months. The patient did not take any antibiotics in the last 3 months. Barriers to learning: none. Reviewed meds, OTCs, herbals or supplements. Reviewed allergies, medications, and past medical history.. No past medical history on file. ALLERGIES Review of patient's allergies indicates no known allergies. MEDICATIONS No current outpatient prescriptions on file. No current facility-administered medications for this visit. Medications and allergies reviewed by this provider. SOCIAL HISTORY Social History Marital status: Spouse name: Years of education: Number of children: Social History Main Topics Smoking status: Never Smoker Smokeless status: Never Used REVIEW OF SYSTEMS Review of Systems ROS: constitutional-neg, heent-neg, heart-neg, respiratory- cough, skin-neg, lymph-neg, neuro-neg, - All systems neg except as noted above in HPI. OBJECTIVE: BP 136/80 Pulse 83 Temp 36.8 ?C (98.3 ?F) Resp 18 Ht 170.2 cm (5' 7ANDquot;) Wt 88.5 kg (195 lb) LMP 02/10/2017 SpO2 100% BMI 30.54 kg/m2. Vital signs reviewed by this provider. Physical Exam AAOx3, no acute distress, patient is pleasant, well groomed, dressed appropriately. General: WD, WN, NAD, alert. HEENT: No facial erythema or swelling. Eyes: PERRL. EOMI. No erythema or discharge. -Ears: TMs pearly renteria with light reflex, ear canals not red or swollen. Small effusion bilaterally. -Nose-nasal mucosa pink and no discharge/polyps, nasal septum midline. -Throat: pharynx pink with no edema/mass/exudate/erythema, buccal mucosa pink and moist with no lesions. Post nasal drainage present on posterior pharynx. Head: maxillary tenderness noted upon palpation. Neck: no masses or lymphadenopathy. Chest: CTA bilaterally with equal breath sounds; good air exchange throughout. No wheezing, rhonchi, or crackles; no retractions, tripoding, or nasal flaring noted. Heart: RRR, no murmur, rub, or gallop.. ASSESSMENT/PLAN: 1. Acute bacterial bronchitis - ICD9: 466.0, 041.9, ICD10: J20.8, B96.89 - AZITHROMYCIN 250 MG TABLET - PREDNISONE 20 MG TABLET - ALBUTEROL SULFATE HFA 90 MCG/ACTUATION AEROSOL INHALER Encourage fluids, rest. Tylenol and Motrin for pain and fever. If you have a fever rotate between the Tylenol and Motrin every 3 hours. Saline Nasil spray, Neti Pot, vaporizer, Vicks. Try Cepocol lozenges or Chloraseptic throat spray. Warm salt water gargles. Cough and deep breath- 10x/hr while awake. May use OTC Mucinex DM as directed for cough Take entire course of Antibiotics. Call PCP if sx worsen or no better. If symptoms worsen, or new symptoms develop go to ER. If you have worsening of breathing or breathing changes- go to ER. If you have persistent fever unrelieved by Tylenol/Motrin- go to the ER. Follow up as needed. The patient verbalizes understanding and is in agreement with plan of care. Barriers to learning: none. JACKELINE Donato PA-C, ANUJ 02/27/2017 10:10 AM Signed ASSESSMENT/PLAN: 1. Acute bacterial bronchitis - - AZITHROMYCIN 250 MG TABLET - PREDNISONE 20 MG TABLET - ALBUTEROL SULFATE HFA 90 MCG/ACTUATION AEROSOL INHALER Encourage fluids, rest. Tylenol and Motrin for pain and fever. If you have a fever rotate between the Tylenol and Motrin every 3 hours. Saline Nasil spray, Neti Pot, vaporizer, Vicks. Try Cepocol lozenges or Chloraseptic throat spray. Warm salt water gargles. Cough and deep breath- 10x/hr while awake. May use OTC Mucinex DM as directed for cough Take entire course of Antibiotics. Call PCP if sx worsen or no better. If symptoms worsen, or new symptoms develop go to ER. If you have worsening of breathing or breathing changes- go to ER. If you have persistent fever unrelieved by Tylenol/Motrin- go to the ER. Follow up as needed. The patient verbalizes understanding and is in agreement with plan of care. Barriers to learning: none. Jean Bhakta PA-C Referring Provider: SELF [200] Allergies As of Date: 02/27/2017 (No Known Allergies) Date Reviewed: 02/27/2017 Reviewed by: Stacie Deng Ma - Fully Assessed Reason for Visit: Cough [28] Cmt: x 3 weeks Primary Visit Diagnosis:Acute bacterial bronchitis [J20.8, B96.89] Order(s):azithromycin (ZITHROMAX) 250 mg tabletTake 1 tablet by mouth as directed. Take 2 tablets by mouth on Day 1, then 1 tablet by mouth every day thereafter for 4 daysDisp: 6 tabletRfl: 0 predniSONE (DELTASONE) 20 mg tabletTake 2 tablets by mouth once daily for 5 days.Disp: 10 tabletRfl: 0 albuterol HFA (PROAIR HFA) 90 mcg/actuation inhalerInhale 2 Puffs as instructed every 4 hours as needed.Disp: 1 InhalerRfl: 0 Prescriptions as of 02/27/2017 Sig: AZITHROMYCIN 250 MG TABLET Take 1 tablet by mouth as dir* PREDNISONE 20 MG TABLET Take 2 tablets by mouth once * ALBUTEROL SULFATE HFA 90 MCG/* Inhale 2 Puffs as instructed * Problem List As Of Date: 02/27/2017 (None) Other instructions from your clinician: ASSESSMENT/PLAN: 1. Acute bacterial bronchitis - - AZITHROMYCIN 250 MG TABLET - PREDNISONE 20 MG TABLET - ALBUTEROL SULFATE HFA 90 MCG/ACTUATION AEROSOL INHALER Encourage fluids, rest. Tylenol and Motrin for pain and fever. If you have a fever rotate between the Tylenol and Motrin every 3 hours. Saline Nasil spray, Neti Pot, vaporizer, Vicks. Try Cepocol lozenges or Chloraseptic throat spray. Warm salt water gargles. Cough and deep breath- 10x/hr while awake. May use OTC Mucinex DM as directed for cough Take entire course of Antibiotics. Call PCP if sx worsen or no better. If symptoms worsen, or new symptoms develop go to ER. If you have worsening of breathing or breathing changes- go to ER. If you have persistent fever unrelieved by Tylenol/Motrin- go to the ER. Follow up as needed. The patient verbalizes understanding and is in agreement with plan of care. Barriers to learning: none. Jean Bhakta PA-C Prescriptions ordered this encounter Disp Refills Start End AZITHROMYCIN 250 MG TABLET 6 ta* 0 02/27/2017 Route: ORAL Sig: Take 1 tablet by mouth as directed. Take 2 tablets by mouth on Day 1, then 1 tablet by mouth every day thereafter for 4 days PREDNISONE 20 MG TABLET 10 t* 0 02/27/2017 03/04/2017 Route: ORAL Sig: Take 2 tablets by mouth once daily for 5 days. ALBUTEROL SULFATE HFA 90 MCG/ACTUATI* 1 In* 0 02/27/2017 Route: INHALATION Sig: Inhale 2 Puffs as instructed every 4 hours as needed. Encounter Status:Closed by JEAN BHAKTA on 02/27/17 PROGRESS Observed: 02/27/2017 Status: COMPLETED Source: [place] [address]:06 AM [facility] REPOSITORY HNO ID: [id number] Author: Jean Santos (Jackeline) ANUJ Bhakta Service: (none) Author Type: Physician Car Wash Supervisor Type: Progress Notes Filed: 02/27/2017 10:23 AM Note Text: 02/27/2017 Patient presents with: Cough: x 3 weeks SUBJECTIVE: This is a 31 year old that is here today for acute onset cough x 3 weeks, but with no wheezing, shortness of breath, increased WOB, or chest pain. . Denies fever, chills, sweats, or fatigue. Asthma: none Pneumonia: none Tobacco: none Pain on scale of 0-10 with 0 being no pain and 10 being greatest pain: 0 Nothing makes the symptoms better. Nothing makes them worse. Self-treatment:. Mucinex, nyquik The severity is mild and the symptoms are not improving. The patient did not have a similar problem in the last 3 months. The patient did not take any antibiotics in the last 3 months. Barriers to learning: none. Reviewed meds, OTCs, herbals or supplements. Reviewed allergies, medications, and past medical history.. No past medical history on file. ALLERGIES Review of patient's allergies indicates no known allergies. MEDICATIONS No current outpatient prescriptions on file. No current facility-administered medications for this visit. Medications and allergies reviewed by this provider. SOCIAL HISTORY Social History Marital status: Spouse name: Years of education: Number of children: Social History Main Topics Smoking status: Never Smoker Smokeless status: Never Used REVIEW OF SYSTEMS Review of Systems ROS: constitutional-neg, heent-neg, heart-neg, respiratory-cough, skin-neg, lymph-neg, neuro-neg, - All systems neg except as noted above in HPI. OBJECTIVE: BP 136/80 Pulse 83 Temp 36.8 ?C (98.3 ?F) Resp 18 Ht 170.2 cm (5' 7) Wt 88.5 kg (195 lb) LMP 02/10/2017 SpO2 100% BMI 30.54 kg/m2. Vital signs reviewed by this provider. Physical Exam AAOx3, no acute distress, patient is pleasant, well groomed, dressed appropriately. General: WD, WN, NAD, alert. HEENT: No facial erythema or swelling. Eyes: PERRL. EOMI. No erythema or discharge. -Ears: TMs pearly renteria with light reflex, ear canals not red or swollen. Small effusion bilaterally. -Nose-nasal mucosa pink and no discharge/polyps, nasal septum midline. -Throat: pharynx pink with no edema/mass/exudate/erythema, buccal mucosa pink and moist with no lesions. Post nasal drainage present on posterior pharynx. Head: maxillary tenderness noted upon palpation. Neck: no masses or lymphadenopathy. Chest: CTA bilaterally with equal breath sounds; good air exchange throughout. No wheezing, rhonchi, or crackles; no retractions, tripoding, or nasal flaring noted. Heart: RRR, no murmur, rub, or gallop.. ASSESSMENT/PLAN: 1. Acute bacterial bronchitis - ICD9: 466.0, 041.9, ICD10: J20.8, B96.89 - AZITHROMYCIN 250 MG TABLET - PREDNISONE 20 MG TABLET - ALBUTEROL SULFATE HFA 90 MCG/ACTUATION AEROSOL INHALER Encourage fluids, rest. Tylenol and Motrin for pain and fever. If you have a fever rotate between the Tylenol and Motrin every 3 hours. Saline Nasil spray, Neti Pot, vaporizer, Vicks. Try Cepocol lozenges or Chloraseptic throat spray. Warm salt water gargles. Cough and deep breath- 10x/hr while awake. May use OTC Mucinex DM as directed for cough Take entire course of Antibiotics. Call PCP if sx worsen or no better. If symptoms worsen, or new symptoms develop go to ER. If you have worsening of breathing or breathing changes- go to ER. If you have persistent fever unrelieved by Tylenol/Motrin- go to the ER. Follow up as needed. The patient verbalizes understanding and is in agreement with plan of care. Barriers to learning: none. Jean Bhakta PA-C ALLERGIES ALLERGIES DATE TYPE / CODE NAME / CODE REACTION SEVERITY SOURCE 02/11/2018 Drug No Known Unknown [facility] Allergy/4160 Allergies/F00 [facility] 12164(SNOMED [id number](RXNOR Repository CT) M) ENCOUNTERS ENCOUNTERS ADMIT/DISCHARGE ACCOUNT ADMITTING ENCOUNTER LOCATION SOURCE NUMBER CLASS 02/11/2018/02/12/20 [id number] Ambulatory BMSBuilding:Vi Jenkins [facility] Repository 01/29/2018 [id number] [facility] Rep[facility] 01/29/2018/01/30/20 [id number] Ambulatory BMSBuilding:B Ring[place] [address] [facility] Repository 12/24/2017/12/25/19 [id number] Ambulatory Building:[address] Repository 12/24/2017/12/25/19 [id number] Ambulatory BMSBuilding:B [place] [address] [facility] Repository 11/27/2017/11/28/19 [id number] Ambulatory BMSBuilding:Vi [place] [address] [facility] Repository 11/23/2017 [id number] Ambulatory Building:[facility] Repository 10/30/2017/10/31/19 [id number] Ambulatory BMSBuilding:Vi [place] [address] [facility] Repository 10/02/2017 [id number] [facility] Rep[facility] 10/02/2017/10/03/19 [id number] Ambulatory BMSBuilding:Vi [place] [address] [facility] Repository 09/04/2017 [id number] [facility] Repository 09/04/2017/09/05/19 [id number] Ambulatory BMSBuilding:Vi Jenkins [address] [facility] Repository 02/27/2017/02/28/20 [id number] Ambulatory [address] Repository PAYERS PAYERS ENCOUNTER GUARANTOR PAYER SUBSCRIBER SOURCE 02/11/2018 MIRYAM J Primary TAMMY Jenkins [id number] Insurance:MEDICAL DAVIESDOB: [id number] Number: [place], [place] [id number] [id number]: 269) Date:5378-23-62XK [phone] () [address], [place] [address]ZG: 02/11/2018 Secondary NOT GIVENUNK Gregory Insurance:SELF PAY [facility] Number: Effective Repository Date:2018-02-11 01/29/2018 MIRYAM J Primary TAMMY Jenkins [id number] Insurance:MEDICAL DAVIESDOB: [facility] [id number][facility] Number: [place]ository [place] [id number]: ([phone]) Date:9960-74-58VZ [phone] () [address] [place] [address]NP: 01/29/2018 Secondary NOT GIVENUNK [place] Insurance:SELF PAY [facility] Number: Effective Repository Date:2018-01-29 01/29/2018 MIRYAM J Primary TAMMY Jenkins [id number] Insurance:MEDICAL DAVIESDOB: [facility] [id number]-[facility] Number: [place] [id number]: ([phone]) Date:1819-42-81QN [phone] () [address], [place] [address]MF: 01/29/2018 Secondary NOT GIVENUNK [place] Insurance:SELF PAY [facility] Number: Effective Repository Date:2018-01-29 12/24/2017 MIRYAM DAVIESDOB: Primary MIRYAM DAVIESDOB: [place] [id number] Insurance:MEDICAL [id number] [facility] Number: [facility]GED WITH [facility] Repository [place] [id number] [phone]: ([phone]) Date: [id number] (HP) 12/24/2017 MIRYAM J Primary TAMMY Jenkins [id number] Insurance:MEDICAL DAVIESDOB: [facility] [id number]-[facility]insula [facility] Number: [place] [id number]: ([phone]) Date:0887-75-81RO [phone] (HP) [address], [place] [address]GO: 12/24/2017 Secondary NOT GIVENUNK Gregory Insurance:SELF PAY [facility] Number: Effective Repository Date:2017-12-24 11/27/2017 MIRYAM J Primary TAMMY Ringoes [id number] Insurance:MEDICAL DAVIESDOB: [facility] [id number]-Peninsula Medical Center Number: [place] [id number]: ([phone]) Date:5286-89-85UT [phone] () [address], [place] [address]KT: 11/27/2017 Secondary NOT GIVENUNK Gregory Insurance:SELF PAY [facility] Number: Effective Repository Date:2017-11-27 11/23/2017 MIRYAM DAVIESDOB: Primary MIRYAM DAVIESDOB: [place] Insurance:MEDICAL [id number] [facility] Number: [facility] Rep[place] [id number] [address]Rqk: ([phone]) Date: [id number] () 10/30/2017 MIRYAM J Primary TAMMY Jenkins [id number] Insurance:MEDICAL DAVIESDOB: [facility] [id number]-Peninsula [facility] Number: [place] [id number] [id number]: ([phone]) Date:3662-34-31JO [phone] () [address] [place] [address]BW: 10/30/2017 Secondary NOT GIVENUNK Gregory Insurance:SELF PAY [facility] Number: Effective Repository Date:2017-10-30 10/02/2017 MIRYAM J Primary TAMMY Ringoes [id number] Insurance:MEDICAL DAVIESDOB: [id number] [place] [id number]: [phone]) Date:[id number] [phone] () [address], [place] [address]LY: 10/02/2017 Secondary NOT GIVENUNK Ringoes Insurance:SELF PAY [facility] Number: Effective Repository Date:2017-10-02 10/02/2017 MIRYAM J Primary TAMMY Ringoes [id number] Insurance:MEDICAL DAVIESDOB: [address] Number: [place]ository [place] [id number]: [phone]) Date:[id number] [phone] () [address], [place] [address]RN: 10/02/2017 Secondary NOT GIVENUNK Gregory Insurance:SELF PAY [facility] Number: Effective Repository Date:2017-10-02 09/04/2017 MIRYAM J Primary TAMMY Jenkins [id number] Insurance:MEDICAL DAVIESDOB: [address] Number: [place] [id number]: ([phone]) Date:1569-67-33LI [phone] () [address], [place] [address]OT: 09/04/2017 Secondary NOT GIVENUNK Ringoes Insurance:SELF PAY [facility] Number: Effective Repository Date:2017-09-04 09/04/2017 MIRYAM J Primary TAMMY Jenkins [id number] Insurance:MEDICAL DAVIESDOB: [address] Number: [place]ository [place], [place] [id number]: [phone]) Date:1798-03-30OY [phone] () [address], [place] [address]GW: 09/04/2017 Secondary NOT GIVENUNK Ringoes Insurance:SELF PAY [facility] Number: Effective Repository Date:2017-09-04
== END ==
PROVIDERS: Referring Provider Obstetrics & Gynecology; Visit Provider Obstetrics & Gynecology
DX: Z34.90 Encounter for supervision of normal pregnancy, unspecified, unspecified trimester (principal)
CPT/HCPCS: 36415; 82950; 85025

== ENCOUNTER → 2018-03-19 18:16 | Outpatient (CLI) | payer OTHER, SELFPAY ==
[2018-03-19 10:54] VITALS: BMI 32.1
--- OUTSIDE RECORDS SUMMARY | 2018-05-24 08:13 | XMS RPT_ITS ---
:1985 Author Organization OHIP Support Name Relationship Address Phone KAROLINA AUGUSTIN Unavailable [address] [phone] [place] [address] ELIDA RICH Unavailable [address] +[phone] [place] [address], [place] [address] S Unavailable Unavailable Unavailable KAROLINA AUGUSTIN Unavailable [address] +[phone] [place] [address] MERCHANT, RICH Unavailable [address] +[phone] [place] [address], [place] [address] S Unavailable Unavailable Unavailable KAROLINA AUGUSTIN Unavailable [address] +[phone] [place] [address] MERCHANT, NNAMDI Unavailable [address] +[phone] [place] [address], [place] [address] S Unavailable Unavailable Unavailable KAROLINA AUGUSTIN Unavailable [address] + [place] [address] MERCHANT, NNAMDI Unavailable [address] +[phone] [place] [address], [place] [address] S Unavailable Unavailable Unavailable KAROLINA AUGUSTIN Unavailable [address] + [place] [address] ELIDA, NNAMDI Unavailable [address] +[phone] [place] [address], [place] [address] S Unavailable Unavailable Unavailable KAROLINA AUGUSTIN Unavailable [address] + [place] [address] MERCHANT, RICH Unavailable [address] +[phone] [place] [address], [place] [address] S Unavailable Unavailable Unavailable KAROLINA AUGUSTIN Unavailable . + [place], [place] . ELIDA RICH Unavailable [address] +[phone] [place] [address], [place] [address] S Unavailable Unavailable Unavailable MIRYAM MERCHANT Unavailable [address] + [place] [address] KAROLINA AUGUSTIN Unavailable . + [place], [place] . ELIDA NNAMDI Unavailable [address] + [place] [address] S Unavailable Unavailable Unavailable KAROLINA AUGUSTIN Unavailable . + [place], [place] . NNAMDI MERCHANT Unavailable [address] + [place] [address] S Unavailable Unavailable Unavailable MIRYAM MERCHANT Unavailable [address] + [place] [address] KAROLINA AUGUSTIN Unavailable . + [place], [place] . NNAMDI MERCHANT Unavailable [address] + [place] [address] S Unavailable Unavailable Unavailable KAROLINA AUGUSTIN Unavailable Unavailable + [place] NNAMDI MERCHANT Unavailable [address] +[phone] [place] [address], [place] [address] S Unavailable Unavailable Unavailable . Unavailable . + [place] [address] MERCHANTNNAMDI Unavailable [address] + [place] [address] . Unavailable . + [place] [address] NNAMDI MERCHANT Unavailable [address] + [place] [address] . Unavailable Unavailable + [place] [address] MERCHANTNNAMDI Unavailable [address] + [place] [address] Care Team Providers Name Role Phone BANG MILLER Attending Unavailable KAROLINA MOSQUERA Referring Unavailable NO PRIMARY CAREMD Primary Care Unavailable BANG MILLER Attending Unavailable KAROLINA MOSQUERA Referring Unavailable NO PRIMARY CARE, Primary Care Unavailable Karolina Mosquera Attending Unavailable Primay Care Physicia, No Referring Unavailable [place] City[place]icaela Attending Unavailable Primay Care Physicia, No Referring Unavailable Lucretia, Molly Attending Unavailable Primay Care Physicia, No Referring Unavailable [place] City[place]risteny Attending Unavailable Prim[facility] Care Physicia, No Primary Care Unavailable [place], Micaela Referring Unavailable Marcanthony, Karolina Attending Unavailable Prim[facility] Care Physicia, No Referring Unavailable Marcanthony, Karolina Attending Unavailable Marcanthony, Karolina Attending Unavailable [place], Micaela Attending Unavailable [place], Micaela Attending Unavailable [place], Micaela Referring Unavailable Prim[facility] Care Physicia, No Primary Care Unavailable Lucretia, Micaela Attending Unavailable Prim[facility] Care Physicia, No Referring Unavailable Marcanthony, Karolina Attending Unavailable Marcanthony, Karolina Attending Unavailable Marcanthony, Karolina Attending Unavailable Marcanthony, Karolina Attending Unavailable Marcanthony, Karolina Referring Unavailable Primay Care Physicia, No Primary Care Unavailable PROBLEMS PROBLEMS DATE TYPE CONDITION / CODE ATTENDING STATUS SOURCE 03/26/2018 Unknown Z36.9 - Encounter Marcanthony, Active [place] for [facility] screening, [facility] unspecified / Repository Z36.9(ICD-10) 03/26/2018 Unknown Z34.83 - Encounter Marcanthony, Active [place] for supervision of [facility] other normal Hospital , third Repository trimester / Z34.83(ICD-10) 03/26/2018 Unknown O99.019 - Anemia Marcanthony, Active [place] complicating [facility], [facility] unspecified Repository trimester / O99.019(ICD-10) 03/26/2018 Unknown Z3A.37 - 37 weeks Marcanthony, Active [place] gestation of [facility] / Hospital Z3A.37(ICD-10) Repository 03/20/2018 Unknown Z34.90 - Encounter Micaela Boykin Active [place] for supervision of [facility] unspecified, Repository unspecified trimester / Z34.90(ICD-10) 03/19/2018 Unknown Z3A.33 - 33 weeks Lucretia Micaela Active [place] gestation of [facility] / Hospital Z3A.33(ICD-10) Repository 02/11/2018 Unknown Z3A.30 - 30 weeks Marcanthony, Active [place] gestation of [facility] / Hospital Z3A.30(ICD-10) Repository 01/29/2018 Unknown Z23 - Encounter Marcanthony, Active [place] for immunization / [facility] Z23(ICD-10) Hospital Repository 01/29/2018 Unknown Z3A.28 - 28 weeks Marcanthony, Active [place] gestation of [facility] / Hospital Z3A.28(ICD-10) Repository 10/30/2017 Unknown Z34.81 - Encounter Micaela Boykin Active [place] for supervision of [facility] , first Repository trimester / Z34.81(ICD-10) 10/30/2017 Unknown Z3A.16 - 16 weeks Micaela Boykin Active [place] gestation of [facility] / Hospital Z3A.16(ICD-10) Repository 10/02/2017 Unknown Z3A.12 - 12 weeks Miceala Boykin Active [place] gestation of [facility] / Hospital Z3A.12(ICD-10) Repository 09/04/2017 Unknown Z34.80 - Encounter Tomasz, Active [place] for supervision of [facility] Hospital , Repository unspecified trimester / Z34.80(ICD-10) 09/04/2017 Unknown Z12.4 - Encounter Tomasz Active [place] for screening for [facility] malignant neoplasm Hospital of cervix / Repository Z12.4(ICD-10) PROCEDURES PROCEDURES No Procedure Records FoundRESULTS RESULTS BUILDING ADMIN OFFICE VISIT Observed: 03/26/2018 Status: F Source: [place] REPORT 10:43 AM [facility] [address] [place] [address]. [address] [place] [address] OFFICE VISIT Date of Service: 03/26/18 MR#: [id number] Acct: [id number] Name: MIRYAM MERCHANT Rep #: [id number] : 1985 Provider: Karolina Mosquera MD Age/Sex: 32/F Location: [facility] Status: Signed Intake Vital Signs03/26/18 Height 5 ft 8 in 03/26/18 Weight: 223 lb 03/26/18 Body Mass Index (BMI) 33.9 03/26/18 Blood Pressure 130/82 H 03/26/18 Body Mass Index (BMI) 32.1 Intake Visit Reasons: 36 WEEKS Chief Complaint: est ob M48/M60 Tank Driver Required: No Is patient in pain?: No Allergies No Known Allergies Allergy (Verified 03/26/18 10:26) Medications vitamins no.42-folic acid 1.4 mg chew tablet,IR - DR,biphase 2 tab PO QDAY tab 09/04/17 [History Confirmed 03/26/18] ranitidine 150 mg tablet 150 mg PO BID #60 tab 02/11/18 [Rx Confirmed 03/26/18] Last Menstral Period: 07/10/17 Zika: Zika virus screening: Negative : No PFSH PFSH Surgical History Gallbladder AND bile duct stone with obstruction (Acute) Family History Grandfather Cancer liver Grandmother Cancer pancreatic Mother Hypertension Brother ulcerated coilitis Sister ulcerated coilitis Social History adopted: No household members: spouse number of children: 1 current occupational status: employed 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 OB Visit HAYDEN Calculator Estimated Delivery Date 04/16/18 Based on LMP (certain) 07/10/17 Current WG 37w 0d Number 1 Expected Delivery Route/Plan Specific [...] Effac lucose ed Visit Notes Visit Date: 03/26/18 no vb lof good fm no rebular ctx Karolina Mosquera MD on 03/26/18 Visit Date: 03/19/18 Doing well. No CTX, LOF, VB. Good FM LUCIEN Lassiter on 03/19/18 Visit Date: 03/01/18 No VB, LOF. Zantac helpful LUCIEN Lassiter on 03/01/18 Visit Date: 02/11/18 no vb lof good fm no regular ctx discussed zantac for reflux Karolina Mosquera MD on 02/11/18 Visit Date: 01/29/18 no vb lof good fm noregular ctx cbc gct tdap Karolina Mosquera MD on 01/29/18 Visit Date: 12/24/17 no vb lof good fm no regular ctx Karolina Mosquera MD on 12/27/17 Visit Date: 11/27/17 no vb lof some fm. anatomy scan has repeat ordered to view spine, declines afp testing. Karolina Mosquera MD on 11/27/17 Visit Date: 10/30/17 Nausea [...] (Negative) 09/04/17 N.gonorrhoeae DNA (PCR) Negative (Negative) 07/06/18 Glucose 1 Hr 50 gm 120 mg/dL (70-140) 01/29/18 Group B Strep DNA Cancelled 03/19/18 Miscellaneous Test 10/02/17 Details: HIV: Urine Culture: Sequential Screen: NIPT Screen: Results [id number] Office Urine Glucose Negative Last Edit by Laura Rivero on 03/26/18 10:30 Office Urine Protein Negative Last Edit by Laura Rivero on 03/26/18 10:30 Assessment AND Plan Problems 1. Anemia during O99.019 Recommend starting Iron 2. 37 weeks gestation of Z3A.37 MFM US anatomy- Normal US needs repeat in 4 weeks d/t spine- repeat 12/24/17- normal. Patient is scheduled. declines carrier and ntd screening. 3. screening encounter Z36.9 NIPT- Low risk, fraction 8.2%, sex: female 4. Encounter for supervision of other normal in third trimester Z34.83 PRR HAYDEN 04/16/17 Girl zan; PC Omer Rich Plan movement and labor precautions reviewed. ACOG trimester education reviewed and updated. see problem list details for updated plan management information and see below for orders placed at this visit. GA appropriate handout given. Orders Orders: Coding Level of Care Code OB Routine Diagnoses Anemia during O99.019 37 weeks gestation of Z3A.37 Weeks of gestation: 37 weeks screening encounter Z36.9 Encounter for supervision of other normal in third trimester Z34.83 Normal : other normal Trimester: third trimester 03/26/18 1043 <Electronically signed by Karolina Mosquera MD> Date Karolina Mosquera MD Cosigner Signature: Date (if applicable) CC: Observed: 03/19/2018 Status: F Source: [place] CULTURE, GROUP B 6:18 PM [facility] KAREN Culture Group B Beta Streptococcus is not isolated. Performed By: #### M100.1800 #### [facility] [address] [place], [place], [address] BUILDING ADMIN OFFICE VISIT Observed: 03/19/2018 Status: F Source: [place] REPORT 11:03 AM [facility] [address] [place] [address] OFFICE VISIT Date of Service: 03/19/18 MR#: [id number] Acct: [id number] Name: MIRYAM MERCHANT Rep #: [id number] : 1985 Provider: SHALINI Boykin Age/Sex: 32/F Location: [facility] Status: Signed Intake Vital Signs03/19/18 Body Mass Index (BMI) 32.1 03/19/18 Height 5 ft 2 in 03/19/18 Weight: 222 lb 6 oz 03/19/18 Body Mass Index (BMI) 40.6 03/19/18 Blood Pressure 126/82 H Intake Visit Reasons: 35 WEEKS M48/M60 Tank Driver Required: No Is patient in pain?: No Allergies No Known Allergies Allergy (Verified 03/19/18 10:53) Medications vitamins no.42-folic acid 1.4 mg chew tablet,IR - DR,biphase 2 tab PO QDAY tab 09/04/17 [History Confirmed 03/19/18] ondansetron HCl 4 mg tablet 4 mg PO Q4H #60 tab 09/24/17 [Rx Confirmed 03/19/18] ranitidine 150 mg tablet 150 mg PO BID #60 tab 02/11/18 [Rx Confirmed 03/19/18] Last Menstral Period: 07/10/17 Zika: Zika virus screening: Negative : No PFSH PFSH Surgical History Gallbladder AND bile duct stone with obstruction (Acute) Family History Grandfather Cancer liver Grandmother Cancer pancreatic Mother Hypertension Brother ulcerated coilitis Sister ulcerated coilitis Social History adopted: No household members: spouse number of children: 1 current occupational status: employed 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 OB Visit HAYDEN Calculator Estimated Delivery Date 04/16/18 Based on LMP (certain) 07/10/17 Current WG 36w 0d Number 1 Expected Delivery Route/Plan Specific Issue/Plans flu vaccine: given tdap vaccine: given rhogam: na LARC form signed: lalo labor support person: Nnamdi pain management: epidural cut cord/dad catch: cord only : yes PP control planned: condoms special requests: Initial Weight: 193 lb Date Weight BP Urine PFHR FuHt Pres MCTX DilatioFetal SVisit NProvideComment rot ov n t ote r s EGA Ef Gluco faced se 09/04/1192 lb 124/76 8 8 oz (+ 8w8 oz) 0d Visit Notes Visit Date: 03/19/18 Doing well. No CTX, LOF, VB. Good FM LUCIEN Lassiter on 03/19/18 Visit Date: 03/01/18 No VB, LOF. Zantac helpful LUCIEN Lassiter on 03/01/18 Visit Date: 02/11/18 no vb lof good fm no regular ctx discussed zantac for reflux Karolina Mosquera MD on 02/11/18 Visit Date: 01/29/18 no vb lof good fm noregular ctx cbc gct tdap Karolina Mosquera MD on 01/29/18 Visit Date: 12/24/17 no vb lof good fm no regular ctx Karolina Mosquera MD on 12/27/17 Visit Date: 11/27/17 no vb lof some fm. anatomy scan has repeat ordered to view spine, declines afp testing. Karolina Mosquera MD on 11/27/17 Visit Date: 10/30/17 Nausea [...] Negative Last Edit by Lola Pittman on 03/19/18 10:54 Office Urine Protein Trace Last Edit by Lola Pittman on 03/19/18 10:54 Assessment AND Plan Problems 1. Encounter for supervision of other normal in third trimester Z34.83 PRR HAYDEN 04/16/17 Girl zan; PC Omer Rich 2. 33 weeks gestation of Z3A.33 MFM US anatomy- Normal US needs repeat in 4 weeks d/t spine- repeat 12/24/17- normal. Patient is scheduled. declines carrier and ntd screening. 3. screening encounter Z36.9 NIPT- Low risk, fraction 8.2%, sex: female 4. Anemia during O99.019 Recommend starting Iron Plan Orders placed: GBS Reviewed of labor precautions, movement/kick counts ACOG trimester education reviewed and updated See problem list details for updated plan of care Gestational age appropriate handout given RTO: 1 week Orders Orders: Coding Level of Care Code OB Routine Diagnoses Encounter for supervision of other normal in third trimester Z34.83 Normal : other normal Trimester: third trimester 33 weeks gestation of Z3A.33 Weeks of gestation: 33 weeks screening encounter Z36.9 Anemia during O99.019 03/19/18 1103 <Electronically signed by Micaela MCGRAW> Date Micaela MCGRAW Cosigner Signature: Date (if applicable) CC: BUILDING ADMIN OFFICE VISIT Observed: 03/01/2018 Status: F Source: [place] REPORT 11:13 AM [facility] [address] [place] [address] OFFICE VISIT Date of Service: 03/01/18 MR#: [id number] Acct: [id number] Name: MERCHANTMIRYAM Rep #: [id number] : 1985 Provider: SHALINI Boykin Age/Sex: 32/F Location: [facility] Status: Signed Intake Vital Signs03/01/18 Body Mass Index (BMI) 32.1 03/01/18 Height 5 ft 2 in 03/01/18 Weight: 219 lb 6 oz 03/01/18 Body Mass Index (BMI) 40.1 03/01/18 Blood Pressure 114/76 Intake Visit Reasons: 33 WEEKS Chief Complaint: Est OB Accompanied by: Self Is patient in pain?: No Allergies No Known Allergies Allergy (Verified 03/01/18 10:58) Medications vitamins no.42-folic acid 1.4 mg chew tablet,IR - DR,biphase 2 tab PO QDAY tab 09/04/17 [History Confirmed 03/01/18] ondansetron HCl 4 mg tablet 4 mg PO Q4H #60 tab 09/24/17 [Rx Confirmed 03/01/18] ranitidine 150 mg tablet 150 mg PO BID #60 tab 02/11/18 [Rx Confirmed 03/01/18] Last Menstral Period: 07/10/17 Zika: Zika virus screening: Negative : No PFSH PFSH Surgical History Gallbladder AND bile duct stone with obstruction (Acute) Family History Grandfather Cancer liver Grandmother Cancer pancreatic Mother Hypertension Brother ulcerated coilitis Sister ulcerated coilitis Social History adopted: No household members: spouse number of children: 1 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 OB Visit HAYDEN Calculator Estimated Delivery Date 04/16/18 Based on LMP (certain) 07/10/17 Current WG 33w 3d Number 1 Expected Delivery Route/Plan Specific Issue/Plans [...] Effac lucose ed Visit Notes Visit Date: 03/01/18 No VB, LOF. Zantac helpful CHANTEL LassiterC on 03/01/18 Visit Date: 02/11/18 no vb lof good fm no regular ctx discussed zantac for reflux Karolina Mosquera MD on 02/11/18 Visit Date: 01/29/18 no vb lof good fm noregular ctx cbc gct tdap Karolina Mosquera MD on 01/29/18 Visit Date: 12/24/17 no vb lof good fm no regular ctx Karolina Mosquera MD on 12/27/17 Visit Date: 11/27/17 no vb lof some fm. anatomy scan has repeat ordered to view spine, declines afp testing. Karolina Mosquera MD on 11/27/17 Visit Date: 10/30/17 Nausea [...] Office Urine Glucose Negative Last Edit by Sherrie Roche on 03/01/18 11:06 Office Urine Protein Negative Last Edit by Sherrie Roche on 03/01/18 11:06 Assessment AND Plan Problems 1. Encounter for supervision of other normal in third trimester Z34.83 PRR HAYDEN 04/16/17 Girl zan; PC Omer Rich 2. 33 weeks gestation of Z3A.33 MFM US anatomy- Normal US needs repeat in 4 weeks d/t spine- repeat 12/24/17- normal. Patient is scheduled. declines carrier and ntd screening. 3. screening encounter Z36.9 NIPT- Low risk, fraction 8.2%, sex: female 4. Anemia during O99.019 Recommend starting Iron Plan Orders placed: none Is taking Fe Reviewed of labor precautions, movement/kick counts ACOG trimester education reviewed and updated See problem list details for updated plan of care Gestational age appropriate handout given RTO: 2 weeks Orders Orders: Coding Level of Care Code OB Routine Diagnoses Encounter for supervision of other normal in third trimester Z34.83 Normal : other normal Trimester: third trimester 33 weeks gestation of Z3A.33 Weeks of gestation: 33 weeks screening encounter Z36.9 Anemia during O99.019 03/01/18 1113 <Electronically signed by Micaela MCGRAW> Date Micaela MCGRAW Cosigner Signature: Date (if applicable) CC: BUILDING ADMIN OFFICE VISIT Observed: 02/11/2018 Status: F Source: [place] REPORT 9:46 AM [facility] [address] [place] [address]. 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 anatomy scan has repeat ordered to view spine, declines afp testing. Karolina Mosquera MD on 11/27/17 Visit Date: 10/30/17 Nausea [...] O99.019 02/11/18 0946 <Electronically signed by Karolina Mosquera MD> Date Karolina Mosquera MD Cosigner Signature: Date (if applicable) CC: [...] Lymph 1.68 Performed By: #### L100.0100 #### [facility] [address] [place], [address] GLUCOSE CHALLENGE GEST Collected: 01/29/2018 Status: F Source: [place] 1H 50G 11:25 AM [facility] [place] TYPE CODE TESTS RESULT OUT OF RANGE REFERENCE UNITS LAB L501.0250 70-140 mg/dL Normal GLU GEST 120 50g 1H Performed By: #### L501.0250 #### [facility] [address] [place], [address] BUILDING ADMIN OFFICE VISIT Observed: 01/29/2018 Status: F Source: [place] REPORT 10:51 AM [facility] 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 anatomy scan has repeat ordered to view spine, declines afp testing. Karolina Mosquera MD on 11/27/17 Visit Date: 10/30/17 Nausea improved. No VB, LOF. Doing well. Micaela Boykin NP-Apollo on 10/30/17 Visit Date: 10/02/17 Doing well. [...] 10:33 Immunizations Boostrix Tdap Performing Provider: Karolina Mosquera MD Administered by: Laura Rivero on 01/29/18 10:32 Dose Route Admin Location Lot Number Expiration Date NDC Inspector Packer 0.5 mL IM Left Arm (SQ) [id number] 12/19/24 87287-394-32 [employer] VIS Given Date VIS Publication Date [...] trimester 01/29/18 1051 <Electronically signed by Karolina Mosquera MD> Date Karolina Mosquera MD Cosign Signature: Date (if applicable) CC: BUILDING ADMIN OFFICE VISIT Observed: 12/27/2017 Status: F Source: [place] REPORT 1:47 AM [facility] 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 anatomy scan has repeat ordered to view spine, declines afp testing. Karolina Mosquera MD on 11/27/17 Visit Date: 10/30/17 Nausea [...] Screen: NIPT Screen: Office Meds Flucelvax Quad [id number] (PF) Performing Provider: Karolina Mosquera MD Administered by: Laura Rivero on 12/24/17 10:20 Dose Route Admin Location Lot Number Expiration Date NDC Inspector Packer 60 mcg IM left arm [id number] 08/29/18 29901-677-48 SEQIRUS Assessment AND Plan Problems 1. 23 weeks gestation of Z3A.23 MFM US anatomy- Normal US needs repeat in 4 weeks d/t spine. Patient is scheduled. declines carrier and ntd screening. 2. screening encounter Z36.9 NIPT- Low risk, fraction 8.2%, sex: female 3. Encounter for supervision of other normal in first trimester Z34.81 PRR HAYDEN 04/16/17 Girl; PC Omer Rich Plan ACOG trimester education reviewed and updated. see problem list details for updated plan management information and see below for orders placed at this visit. GA appropriate handout given. Orders Orders: Medications Discontinued: Flucelvax Quad [id number] (PF) (flu vac qs 2018(4 yr60 mcg [...] trimester 12/27/17 0147 <Electronically signed by Karolina Mosquera MD> Date Karolina Mosquera MD Cosigner Signature: Date (if applicable) CC: BUILDING ADMIN OFFICE VISIT Observed: 11/27/2017 Status: F Source: [place]REG[place] REPORT 9:42 AM [facility] [address] [place] [address] OFFICE VISIT Date of Service: 11/27/17 MR#: [id number] Acct: [id number] Name: MIRYAM MERCHANT Rep #: [id number] : 1985 Provider: Karolina Mosquera MD Age/Sex: 32/F Location: [facility] Status: Signed Intake Vital Signs11/27/17 Height 5 ft 8 in 11/27/17 Weight: 200 lb 4 oz 11/27/17 Body Mass Index (BMI) 30.4 11/27/17 Blood Pressure 122/68 H Intake Visit Reasons: 20 weeks M48/M60 Tank Driver Required: No Is patient in pain?: No Allergies No Known Allergies Allergy (Verified 11/27/17 09:33) Medications vitamins no.42-folic acid 1.4 mg chew tablet,IR - DR,biphase 2 tab PO QDAY tab 09/04/17 [History Confirmed 11/27/17] ondansetron HCl 4 mg tablet 4 mg PO Q4H #60 tab 09/24/17 [Rx Confirmed 11/27/17] Last Menstral Period: 07/10/17 Zika: Zika virus screening: Positive (FLA-went to [place]) : No PFSH PFSH Surgical History Gallbladder AND bile duct stone with obstruction (Acute) Family History Grandfather Cancer liver Grandmother Cancer pancreatic Mother Hypertension Brother ulcerated coilitis Sister ulcerated coilitis Social History adopted: No household members: spouse number of children: 1 current occupational status: employed 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 Karolina Mosquera MD on 11/27/17 Visit Date: 10/30/17 Nausea [...] Z36.9 11/27/17 0942 <Electronically signed by Karolina Mosquera MD> Date Karolina Mosquera MD Cosigner Signature: Date (if applicable) CC: BUILDING ADMIN OFFICE VISIT Observed: 10/30/2017 Status: F Source: GREGORY REPORT 10:19 AM [facility] 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 10/12/17 1420 MYOUNG Performed By: #### L801.1541 #### [facility] [address] [place], [address] BUILDING ADMIN OFFICE VISIT Observed: 10/02/2017 Status: F Source: [place] REPORT 9:48 AM [facility] 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 No VB, LOF Micaela Boykin NP-C on 10/02/17 Visit Date: 09/04/17 No visit [...] MCGRAW Cosigner Signature: Date (if applicable) CC: CBC [...] Lymph 1.41 Performed By: #### L100.0100 #### [facility] [address] [place], [place], [id number] TYPE AND SCREEN Collected: 09/04/2017 Status: F Source: [place] 11:51 AM [facility] Order Comment: Reason for Type AND Screen/Red Cells: Surgery? N TYPE CODE TESTS RESULT OUT OF RANGE REFERENCE UNITS LAB B100.1300 A Normal BLOOD TYPE PT POSITIVE LAB B100.7000 Normal ANTIBODY NEGATIVE SCREEN Performed By: #### B101.7400 #### [facility] [address] [place], [place], [address] RUBELLA IGG Collected: 09/04/2017 Status: F Source: [place] 11:51 AM [facility] TYPE CODE TESTS RESULT OUT OF RANGE REFERENCE UNITS LAB L509.4000 IU/mL Normal Rubella IgG 36.2 Result Comment: Antibody results Interpretation of Immune Status < 5 IU/ml Presumed Non-immune 5 - < 10 IU/ml Equivocal > or = 10 IU/ml Presumed Immune Performed By: #### L509.4000, L3890.6005, L700.5000 #### [facility] [address] [facility]. [place], [place], [address] #### L3100.0390 #### [facility] (refer to report for specific site) refer to report for address and phone number [facility] Collected: 09/04/2017 Status: F Source: [place] 11:51 AM [facility] TYPE CODE TESTS RESULT OUT OF RANGE REFERENCE UNITS LAB L3890.6005 Nonreactive Normal HIV - [facility] Non-Reactive Performed By: #### L509.4000, L3890.6005, L700.5000 #### [facility] [address] [place], [address] #### L3100.0390 #### [facility] (refer to report for specific site) refer to report for address and phone number HEPATITIS B SURFACE Collected: 09/04/2017 Status: F Source: [place]REG[place] AG 11:51 AM [facility] TYPE CODE TESTS RESULT OUT OF RANGE REFERENCE UNITS LAB L3100.0400 Negative Normal HB Negative SURF AG Result Comment: Performed at: [facility] [id number] Potato Chip Cooker Machine: Josh Morillo PhD, Phone: [phone] Performed By: #### L509.4000, L3890.6005, L700.5000 #### [facility] [address] [place], [place] [address]e. [place], [address] #### L3100.0390 #### [facility] (refer to report for specific site) refer to report for address and phone number RAPID PLASMIN REAGIN Collected: 09/04/2017 Status: F Source: GREG[place] (RPR) 11:51 AM [facility] TYPE CODE TESTS RESULT OUT OF REFERENCE UNITS RANGE LAB L700.5000 NONREACTIVE NONREACTIVE Normal RPR Performed By: #### L509.4000, L3890.6005, L700.5000 #### [facility] [address] [place], [place], [address] #### L3100.0390 #### [facility] (refer to report for specific site) refer to report for address and phone number BUILDING ADMIN OFFICE VISIT Observed: 09/04/2017 Status: F Source: [place] REPORT 11:46 AM [facility] 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 Smoking Status: Never [...] of Hepatitis: No, Recent travel outside of [place]: No, Concern for Hep exposure: No, Varicella immune: Yes Medical History Medical History: Negative: Diabetes, Hypertension, Heart disease, Auto-immune disorder, Kidney disease/UTI, Neurologic/epilepsy, Psychiatric, Depression/ depression, Hepatitis/liver disease, Varicosities/phlebitis, Thyroid dysfunction, Trauma/domestic violence, History of blood transfusions, D (Rh) Sensitized, Pulmonary (e.g.,TB,Asthma), Seasonal allergies, Drug/latex allergies/reactions, Breast, Aircraft Parts Assembler surgery, Operations/hospitalizations, Anesthetic complications, History of abnormal [...] appearing, comfortable, no acute distress Orientation: alert [facility] Head: normal to inspection, atraumatic, normocephalic [...] practice and discussed care expectations and screenings. [facility] book offered to patient. labs and 19-20 [...] trimester 09/04/17 1146 <Electronically signed by Karolina Mosquera MD> Date Karolina Mosquera MD Cosigner Signature: Date (if applicable) CC: CT/NG [facility] BY PCR Collected: 09/04/2017 Status: F Source: [place] 10:20 AM [facility] TYPE CODE TESTS RESULT OUT OF RANGE REFERENCE UNITS LAB L8200.2100 Negative Normal Chlam Negative Trac PCR LAB L8200.2200 Negative Normal NG by Negative PCR Performed By: #### L8200.2000 #### [facility] [address] [facility] [place], [place], [address] Observed: 09/04/2017 Status: F Source: G[place] CULTURE, URINE 10:20 AM [facility] Urine Culture ORGANISM 1: Mixed Gram Positive Organisms [place] Count 1000-10,000 MIX CULTURE Mixed contaminants. Submit a new specimen if indicated. Performed By: #### M100.0650 #### [facility] [address] [place], [address] PAP I-G W/RFX Collected: 09/04/2017 Status: F Source: GREGORY HRHPV-APTIMA 10:20 AM [facility] Order Comment: CYTOLOGY INFORMATION: - CLINICAL INFORMATION: - DATE LMP/MENOPAUSE: 07-10-17 LMP - COLLECTION VIAL: Thin Prep Vial - CLINICAL SUPPORT MANAGER SOURCE: CERVICAL - COLLECTION TECHNIQUE: CX BROOM ONLY Specimen Comment: [id number] Specimen Comment: No. of containers..01 ThinPrep Vial TYPE CODE TESTS RESULT OUT OF RANGE REFERENCE UNITS LAB L7400.0800 . Normal DIAGN Comment Result Comment: NEGATIVE FOR INTRAEPITHELIAL LESION AND MALIGNANCY. LAB L7400.0900 . Normal ADEQ Comment Result Comment: Satisfactory for evaluation. Endocervical and/or squamous metaplastic cells (endocervical component) are present. LAB L7400.1400 . Normal PERFORM Comment Result Comment: Mala Mcdonald Smoking Pipe Repairer (ASCP) LAB L7400.2575 . Normal TEST METHOD [...] no HPV testing was performed. Performed at: [facility] [id number] Potato Chip Cooker Machine: Lydia Haque MD, Phone: [phone] Performed By: #### L7400.0353 #### [facility] (refer to report for specific site) refer to report for address and phone number PROGRESS Observed: 07/29/2017 Status: COMPLETED Source: [place] 12:54 PM [facility] REPOSITORY HNO ID: [id number] Author: Roxy Taylor Provider Service: (none) Author Type: Physician Type: Progress Notes Filed: 07/29/2017 8:58 AM Note Text: null (CCF:Not available AMW:[id number]) Visit Summary for Miryam Merchant - Gender: Female - Date of : 1985 ( ) Date: - Duration: 3 minutes Patient: Miryam Merchant Provider: Anderson Guevara Patient Contact Information Address [address] [place] [address]; [place] [phone] Visit Topics Poison abigail treatment [Added By: Self - 2017-07-29] Triage Questions Please provide your current address. We need this on file in case of a medical emergency.Answer [[address] [place] [address], [place] [address]] Conversation Transcripts [Notification] You are connected with Anderson Guevara, Family Physician.[Notification] Patient has shared 1 file[Notification] Miryam Merchant is located in [place].[Notification] Miryam Merchant has shared health history...[Notification] Anderson Paola has added a diagnosis/procedure code (see the Visit Notes tab).[Notification] Andersonveronica Guevara has added a diagnosis/procedure code (see the Visit Notes tab).[Notification] Anderson Guevara has added a prescription (see the Visit Notes tab). Diagnosis Unspecified contact dermatitis due to plants, except food Value: L25.5 Code: ICD-10-CM Procedures Value: 22292 Code: CPT-4 ONLINE E/M BY PHYS/QHP Medications [...] questions or problems with the prescription, call [phone] at any time for assistance. 2.Please re-connect [...] basis Electronically signed by: Anderson Guevara( ) ALLERGIES ALLERGIES DATE TYPE / CODE NAME / CODE REACTION SEVERITY SOURCE 03/26/2018 Drug No Known Unknown [facility] Allergy/4160 Allergies/F00 Hospital 03766(SNOMED 7611954(RXNOR Repository CT) M) ENCOUNTERS ENCOUNTERS ADMIT/DISCHARGE ACCOUNT ADMITTING ENCOUNTER LOCATION SOURCE NUMBER CLASS 03/26/2018/03/26/19 [id number] Ambulatory BMSBuilding:[facility] [place] [facility] Repository 03/19/2018 [id number] Ambulatory General acute hospital ing:[facility] Repository 03/19/2018/03/19/19 [id number] Ambulatory BMSBuilding:[facility] [place] [facility] Repository 03/01/2018/03/01/20 [id number] Ambulatory BMSBuilding:B [place] [address] [facility] Repository 02/11/2018/02/12/20 [id number] Ambulatory BMSBuilding:B [place] [address] [facility] Repository 01/29/2018 [id number] Ambulatory General acute hospital ing:LAB Repository 01/29/2018/01/30/20 [id number] Ambulatory BMSBuilding:B [place] [facility] Repository 12/24/2017/12/25/19 [id number] Ambulatory Building:[address] Repository 12/24/2017/12/25/19 [id number] Ambulatory BMSBuilding:B [place] [facility] Repository 11/27/2017/11/28/19 [id number] Ambulatory BMSBuilding:B [place] [address] [facility] Repository 11/23/2017 [id number] Ambulatory Building:[facility] Repository 10/30/2017/10/31/19 [id number] Ambulatory BMSBuilding:[facility] [place] [facility] Repository 10/02/2017 [id number] Ambulatory General acute hospital ing:LAB Repository 10/02/2017/10/03/19 [id number] Ambulatory BMSBuilding:[facility] [place] [facility] Repository 09/04/2017 [id number] Ambulatory General acute hospital ing:POLAB3 Repository 09/04/2017/09/05/19 [id number] Ambulatory BMSBuilding:[facility] [place] [facility] Repository PAYERS PAYERS ENCOUNTER GUARANTOR PAYER SUBSCRIBER SOURCE 03/26/2018 MIRYAM J Primary T[place] [id number] Insurance:MEDICAL DAVIESDOB: [id number] Number: Repository [place] [id number]: ([phone]) Date:1393-16-78GK [phone] () [address], [place] [address]QC: 03/26/2018 Secondary NOT GIVENUNK [place] Insurance:SELF PAY [facility] Number: Effective Repository Date:2018-03-25 03/19/2018 MIRYAM J Primary TAMMY [place] [id number] Insurance:MEDICAL DAVIESDOB: [facility] [id number] Teresita Hospital Number: Repository [place], [place] [id number]: ([phone]) Date:7049-52-02UQ [phone] () [address], [place] [address]DY: 03/19/2018 Secondary NOT GIVENUNK [place] Insurance:SELF PAY [facility] Number: Effective Repository Date:2018-03-19 03/19/2018 MIRYAM J Primary T[place] [id number] Insurance:MEDICAL DAVIESDOB: [facility] [id number]ita Hospital Number: [place] [id number]: ([phone]) Date:8666-47-02DL [phone] () [address] [place] [address]AL: 03/19/2018 Secondary NOT GIVENUNK [place] Insurance:SELF PAY [facility] Number: Effective Repository Date:2018-03-19 03/01/2018 MIRYAM J Primary TAM[place] [id number] Insurance:MEDICAL DAVIESDOB: [facility] 0920-28-84UTMSanta [facility]resita Hospital Number: [place]ository [place] [id number]: ([phone]) Date:1410-07-46VM [phone] () [address] [place] [address]MW: 03/01/2018 Secondary NOT GIVENUNK [place] Insurance:SELF PAY [facility] Number: Effective Repository Date:2018-03-01 02/11/2018 MIRYAM J Primary T[place] [id number] Insurance:MEDICAL DAVIESDOB: [facility] [id number] Teresita Hospital Number: [place] [id number]: ([phone]) Date:5323-50-99AQ [phone] () [address] [place] [address]EX: 02/11/2018 Secondary NOT GIVENUNK [place] Insurance:SELF PAY [facility] Number: Effective Repository Date:2018-02-11 01/29/2018 MIRYAM J Primary TAMMY [place] [id number] Insurance:MEDICAL DAVIESDOB: [facility] [id number] Teresita Hospital Number: [place]ository [place] [id number]: ([phone]) Date:5667-32-53VL [phone] () [address] [place] [address]IF: 01/29/2018 Secondary NOT GIVENUNK [place] Insurance:SELF PAY [facility] Number: Effective Repository Date:2018-01-29 01/29/2018 MIRYAM J Primary TAMMY [id number] Insurance:MEDICAL DAVIESDOB: [facility] [id number] Teresita Hospital Number: [place]ository [place] [id number]: ([phone]) Date:0561-38-12YO [phone] () [address] [place] [address]VJ: 01/29/2018 Secondary NOT GIVENUNK [place] Insurance:SELF PAY [facility] Number: Effective Repository Date:2018-01-29 12/24/2017 MIRYMA DAVIESDOB: Primary MIRYAM DAVIESDOB: [place] [id number] Insurance:MEDICAL [id number] [facility] Number: [facility] Repository [place] [id number] [id number]: ([phone]) Date: [phone] (HP) 12/24/2017 MIRYAM J Primary TAMMY [place] [id number] Insurance:MEDICAL DAVIESDOB: [facility] [id number] Teresita Hospital Number: [place]ository [place] [id number]: ([phone]) Date:4547-16-76AA [phone] (HP) [address] [address]LA: 12/24/2017 Secondary NOT GIVENUNK [place] Insurance:SELF PAY [facility] Number: Effective Repository Date:2017-12-24 11/27/2017 MIRYAM J Primary TAMMY [place] [id number] Insurance:MEDICAL DAVIESDOB: [facility] [id number] Teresita Hospital Number: [place]ository [place] [id number]: ([phone]) Date:8603-02-28OZ [phone] (HP) [address], [place] [address]DG: 11/27/2017 Secondary NOT GIVENUNK [place] Insurance:SELF PAY [facility] Number: Effective Repository Date:2017-11-27 11/23/2017 MIRYAM DAVIESDOB: Primary MIRYAM DAVIESDOB: [place] [id number] Insurance:MEDICAL [id number] [facility] Number: [facility] Repository [place] [id number] [place] [address]Iby: ([phone]) Date: [phone] (HP) 10/30/2017 MIRYAM J Primary TAMMY [place] [id number] Insurance:MEDICAL DAVIESDOB: [facility] [id number] Teresita Hospital Number: [place]ository [place] [id number]: (269) Date:8767-71-98NM [phone] () [address], [place] [address]YD: 10/30/2017 Secondary NOT GIVENUNK [place] Insurance:SELF PAY [facility] Number: Effective Repository Date:2017-10-30 10/02/2017 MIRYAM J Primary TAMMY [place] [id number] Insurance:MEDICAL [facility]: [facility] [id number] Teresita Hospital Number: Repository [place] [id number]: ([phone]) Date:9389-92-06MU [phone] () [address], [place] [address]UF: 10/02/2017 Secondary NOT GIVENUNK [place] Insurance:SELF PAY [facility] Number: Effective Repository Date:2017-10-02 10/02/2017 MIRYAM J Primary TAMMY [place] [id number] Insurance:MEDICAL DAVIESDOB: [facility] 1744-53-20CMTSanta Teresita Hospital Number: Repository [place] [id number]: ([phone]) Date:1384-59-10ZC [phone] () [address] [address]PE: 10/02/2017 Secondary NOT GIVENUNK [place] Insurance:SELF PAY [facility] Number: Effective Repository Date:2017-10-02 09/04/2017 MIRYAM J Primary TAMMY [place] [id number] Insurance:MEDICAL DAVIESDOB: [address] Number: Repository [place], [place] [id number]: ([phone]) Date:0958-33-82EW [phone] () [address], [place] [address]EJ: 09/04/2017 Secondary NOT GIVENUNK [place] Insurance:SELF PAY [facility] Number: Effective Repository Date:2017-09-04 09/04/2017 MIRYAM J Primary TAMMY [place] [id number] Insurance:MEDICAL [facility]ABRAZO [facility]: [address] Number: Repository [place], [place] [id number]: ([phone]) Date:1069-02-08XH [phone] () [address], [place] [address]QF: 09/04/2017 Secondary NOT GIVENUNK [place] Insurance:SELF PAY [facility] Number: Effective Repository Date:2017-09-04
== END ==
PROVIDERS: Referring Provider Nurse Practitioner Women's Health; Visit Provider Nurse Practitioner Women's Health
DX: Z34.90 Encounter for supervision of normal pregnancy, unspecified, unspecified trimester (principal)
CPT/HCPCS: 87081

== ENCOUNTER 2018-04-01 13:35 | Outpatient (CLI) | payer OTHER, SELFPAY ==
[2018-03-26 10:26] VITALS: BMI 33.9
[2018-04-01 14:25] LABS: ROM Internal Control Test YES-OK TO RESULT pt. (Internal QC); ROM Patient Test Negative (Negative); Record Kit Lot#, ROM+ J7836
[2018-04-01 15:16] VITALS: BMI 33.5
--- NOTE | 2018-04-01 17:32 | NURSING ---
Dr. Tolbert called due to pt request for dinner tonight. Verbal order received for reg diet now.
--- NOTE | 2018-04-07 00:43 | OB.TRI.NOTE ---
- Problem List (1) False labor Status: Acute History of Present Illness Date of Service: 04/01/18 Reason For Visit: RULE OUT/ LABOR History of Present Illness: co regular ctx Allergies No Known Allergies Allergy (Verified 04/02/18 10:34) - Pertinent Past Medical History Surgical History: Past Surgical History (Last Reviewed 04/02/18 @ 10:37 by Dena Plata) Gallbladder & bile duct stone with obstruction Laboratory Studies: Laboratory Tests 04/01/18 Range/Units 13:45 Vag Amniotic Fld Detect Negative (Negative) NST - FHR Rate Baby A Baseline: 135 Variability:: Moderate Decelerations:: None NST Reactive:: Yes FHR Category:: Category I Uterine Activity:: regular Impression/Plan false labor- some cervical change and then no further change. patient discharged to fu in office
== END 2018-04-01 19:45 | disposition home or self-care (01) ==
LOC: WPOUT 13:54 → WP 13:55
PROVIDERS: Referring Provider Obstetrics & Gynecology; Visit Provider Obstetrics & Gynecology
DX: O47.9 False labor, unspecified (principal); Z3A.00 Weeks of gestation of pregnancy not specified
CPT/HCPCS: 59025; 59050; 84112; 99218; G0378

== ENCOUNTER 2018-04-02 11:10 | Inpatient (IN) | payer OTHER, SELFPAY ==
[2018-03-01 11:06] VITALS: BMI 32.1
[2018-04-02 11:06] VITALS: BMI 33.5
[2018-04-02 11:20] VITALS: BMI 33.2
[2018-04-02 14:15] LABS: Hematocrit 35.6 % (37-47); Hemoglobin 11.5 g/dl (12.0-15.0); Mean Corp Hgb Conc 32.3 g/gl (32-36); Mean Corpuscular Hgb 28.8 pg (27.0-32.0); Mean Corpuscular Volume 89.2 fL (81-99); Mean Platelet Vol. 10.2 fl (6.2-12.0); Platelet Count 258 K/mm3 (150-450); RBC Distribution Width CV 13.4 % (11.6-14.6); RBC Distribution Width SD 43.5 fl (35.1-43.9); Red Blood Count 3.99 M/mm3 (4.2-5.4); White Blood Count 11.8 K/mm3 (4.4-11.0)
[2018-04-02 14:16] LABS: Scan Indicated on CBC? Y/N NO
[2018-04-02] MEDS: Lactated Ringers 1,000 ML 50 ML IV ×3 (14:35→16:49)
[2018-04-02] MEDS: Oxytocin 30 units/NS 500 ml 30 UNITS/500 ML IV.SOLN IV (15:21)
[2018-04-02] MEDS: Acetaminophen 325 MG Tablet PO (17:26)
[2018-04-02] MEDS: Ondansetron 4 MG/2 ML Vial IV (19:16)
--- NOTE | 2018-04-02 20:02 | PCM.HP.OB ---
- Problem List (1) Anemia during Status: Acute Comment: Recommend starting Iron (2) Status: Acute Qualifiers: Comment: MFM US anatomy- Normal US needs repeat in 4 weeks d/t spine- repeat 12/24/17- normal. Patient is scheduled. declines carrier and ntd screening. (3) screening encounter Status: Acute Comment: NIPT- Low risk, fraction 8.2%, sex: female (4) Supervision of normal Status: Acute Qualifiers: Comment: PRR HAYDEN 04/16/17 Girl zan; PC Omer Rich History Date of Admission: 04/02/18 Final HAYDEN: 04/16/18 Gestational age: 38 Weeks and 0 Days History of this : This is a 32 year-old, , at 38 weeks gestational age presents IOL oligo ana 5 in the office today. she was 4 cm denied any lof admits good fm and hsa been having regular ctx. Surgical History: Surgical History (Last Reviewed 04/02/18 @ 10:37 by Dena Plata) Gallbladder & bile duct stone with obstruction K80.71 Allergies No Known Allergies Allergy (Verified 04/02/18 10:34) Home Medications: Home Medications vitamins no.42-folic acid 1.4 mg chew tablet,IR - DR,biphase 2 tab PO QDAY tab 09/04/17 RX: Ranitidine HCl 150 mg PO BID 04/02/18 Smoking Status: Never smoker Alcohol: None Number of Fetus(es): 1 Heart Tracin moderate variability reactive no decelerations category I tracing\ [place]: regular History Past Pregnancies: Past Pregnancies Delivery Date Name GA/Weeks Outcome Route Weight Gender Labor Length Anesthesia Delivery Location Provider FOB Labs: Mom's Labs & Results 04/02/18 04/02/18 13:50 13:50 WBC 11.8 H RBC 3.99 L Hgb 11.5 L Hct 35.6 L MCV 89.2 MCH 28.8 MCHC 32.3 RDW 13.4 RDW Differential 43.5 Plt Count 258 MPV 10.2 Blood Type A POSITIVE Antibody Screen NEGATIVE Course Did the patient receive Yes care? Labs Blood Type: A RH: POSITIVE RPR/VDRL/Syphilis Nonreactive Rubella status Immune HbSAg Negative Date Done: 09/04/17 Chlamydia Negative Gonorrhea Negative HIV/AIDS Non-Reactive Group B Strep: Positive Current Obstetrical History Gestational Diabetes No Incompetent Cervix No Infertility No IUGR No Macrosomia No Hypertension/Pre-eclampsia No Placenta Previa/Abruption No PTL/PROM No Uterine anomaly No Oligohydramnios Yes Polyhydramnios No Multiple gestation No Past Medical History Asthma No Diabetes No Hypertension No Heart disease No Mitral valve prolapse No Neurologic/Seizure disorder/ No Migraines Kidney disease No Liver disease No Varicosities No Clotting disorders/Hx of DVT No Thyroid Dysfunction No Other medical diseases No Psychiatric disorders No Major trauma No Abnormal PAP smear No Sleep apnea No Mammogram in the last 2 years No Social History Marital Status: Alleged father Rich Hx Smoking No Smoking Status Never smoker Expected Delivery Method: Spontaneous Vaginal Review of Systems Constitutional: Denies: Fever, Malaise Eyes: Denies: Blurred vision, Vision Change HEENT: Denies: Head Aches, Visual Changes Cardiovascular: Denies: Chest Pain, Palpitations Respiratory: Denies: Cough, Shortness of Breath, Wheezing Gastrointestinal: Denies: Abdominal Pain, Diarrhea, Nausea, Vomiting Genitourinary: Denies: Dysuria, Hematuria Musculoskeletal: Denies: Joint Pain, Muscle pain Skin: Denies: Lesions, Rash Neurological: Denies: Blurred vision, Focal weakness, Headaches Psychiatric: Denies: Anxiety, Depression Endocrine: Denies: Heat/ Cold Intolerance Hematologic/ Lymphatic: Denies: Easy Bruising, Easy Bleeding Physical Exam General: Alert, Cooperative, No apparent distress HEENT: Atraumatic, Normocephalic. Negative for: Thyromegaly, Lymphadenopathy Cardiovascular: Regular rate Lungs: Normal air movement Abdomen: Soft, Non Tender, Gravid Neurological: Deep Tendon Reflexes 2+/4 and Symmetrical, Neuro grossly intact. 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 Negative for: Vulvar lesions Estimated gestational size: Appropriate for gestational size Presentation: Cephalic Cervix Dilation (cm): 3 Assessment/Plan All Active Problems (Last Reviewed 04/02/18 @ 10:37 by Dena Plata) Anemia during (Acute) (Acute) screening encounter (Acute) Supervision of normal (Acute) This is a 32 year-old, , at 38 weeks gestational age IOL oligo Patient presents IoL, plan expectant management for , pitocin/AROM . Pain management: plans epidural. GBS negative. Management of any complications: oligo I have reviewed the [facility] and made any clinically relevant updates.
--- NOTE | 2018-04-02 20:10 | PCM.OB.VAG ---
- Problem List (1) Anemia during Status: Acute Comment: Recommend starting Iron (2) Status: Acute Qualifiers: Comment: MFM US anatomy- Normal US needs repeat in 4 weeks d/t spine- repeat 12/24/17- normal. Patient is scheduled. declines carrier and ntd screening. (3) screening encounter Status: Acute Comment: NIPT- Low risk, fraction 8.2%, sex: female (4) Supervision of normal Status: Acute Qualifiers: Comment: PRR HAYDEN 04/16/17 Girl zan; PC Omer Rich Vaginal Delivery Maternal Presentation: Medically Indicated Induction iol oligo Method of Induction: Pitocin Medical Reason for Induction: - - oligo Amniotic Membrane Rupture Type: Artificial Amniotic Fluid Description: Clear Final HAYDEN: 04/16/18 Gestational age: 38 Weeks and 2 Days Date of Procedure: 04/02/18 Pre-Operative Diagnosis: iol oligo Post-Operative Diagnosis: same Surgery/ Procedure Performed: Spontaneous Vaginal Delivery Type of Anesthesia: Epidural Description of Procedure: Patient began pushing and delivered the head in the ANTONIO presentation. The head was delivered atraumatically. The anterior and posterior shoulders delivered without complication followed by the rest of the and the infant was placed on the maternal abdomen. Delayed cord clamping was employed for approximately 60 seconds. Cord was clamped and cut and gentle traction was applied to the cord and the placenta delivered spontaneously immediately following it was noted to be intact with three-vessel cord. The perineum and vagina were inspected and noted have a second degree laceration repaired in the usual fashion. Patient and infant tolerated delivery well. Presentation: ANTONIO Placental Delivery Description: Spontaneous Placenta Disposition: [facility]
[2018-04-02] MEDS: Oxytocin 30 units/NS 500 ml 30 UNITS/500 ML IV.SOLN 334 UNITS IV (20:30)
[2018-04-02] MEDS: Oxytocin 30 units/NS 500 ml 30 UNITS/500 ML IV.SOLN 167 UNITS IV (21:00)
[2018-04-02] MEDS: Naproxen 250 MG Tablet PO (23:15)
[2018-04-03 01:30] VITALS: BP 109/55; PULSE 81; RESP 18; TEMP 36.6; O2SAT 98
[2018-04-03 05:01] VITALS: BP 107/52; PULSE 80; RESP 16; TEMP 36.8; O2SAT 98
[2018-04-03] MEDS: Naproxen 250 MG Tablet PO ×3 (07:43→21:51)
[2018-04-03 07:46] VITALS: BP 102/59; PULSE 79; RESP 16; TEMP 36.6; O2SAT 98
--- NOTE | 2018-04-03 09:44 | PCM.PN.OB ---
Subjective: doing well no complaints pain controlled no CP SOB N V ambulating well tolerating po lochia moderate, going well - Physical Exam General: Alert, Oriented x3 Vital Signs Temp Pulse Resp BP Pulse Ox 97.9 F 79 16 102/59 L 98 04/03/18 07:46 04/03/18 07:46 04/03/18 07:46 04/03/18 07:46 04/03/18 07:46 Oxygen Delivery Method Room Air Weight: 218 lb 8 oz Body Mass Index (BMI) 33.2 Intake and Output for Last 24 Hours 04/01/18 04/02/18 04/03/18 23:59 23:59 23:59 Output Total 200 / 200 400 / 400 Balance -200 / -200 -400 / -400 Laboratory Tests Past 24 Hrs 04/02/18 04/02/18 13:50 13:50 WBC 11.8 H RBC 3.99 L Hgb 11.5 L Hct 35.6 L MCV 89.2 MCH 28.8 MCHC 32.3 RDW 13.4 RDW Differential 43.5 Plt Count 258 MPV 10.2 Blood Type A POSITIVE Antibody Screen NEGATIVE Medical Necessity - Tobacco Use Smoking Status: Never smoker Assessment/Plan All Active Problems (Last Reviewed 04/02/18 @ 10:37 by Dena Plata) Anemia during (Acute) (Acute) screening encounter (Acute) Supervision of normal (Acute) s/p PPD # 1 1. routine post delivery care 2. breast feeding- support given 3. rh positive 4. rubella immune
[2018-04-03 12:00] VITALS: BP 116/71; PULSE 75; RESP 14; TEMP 36.7; O2SAT 98
[2018-04-03] MEDS: Prenatal Vits Tablet 1 TABLET PO (13:06)
[2018-04-03 16:15] VITALS: BP 102/55; PULSE 84; RESP 20; TEMP 36.6; O2SAT 97
[2018-04-03 20:00] VITALS: BP 151/78; PULSE 78; RESP 20; TEMP 36.1
[2018-04-04 02:00] VITALS: BP 134/78; PULSE 84; RESP 18; TEMP 36.6
[2018-04-04] MEDS: Naproxen 250 MG Tablet PO (08:15)
[2018-04-04 09:00] VITALS: BP 115/71; PULSE 77; RESP 16; TEMP 36.5
--- NOTE | 2018-04-04 13:32 | PCM.DCVAG ---
Discharge Diet: No Restrictions Discharge Activity: Return to Normal Activity, May not drive while taking narcotic pain medications., May Shower May resume sexual activity in: 4-6 weeks Call your doctor if your incision/area has: Continuous Slow Oozing, Sudden Increased Bleeding, Increased Pain/ Swelling, Increased Redness, Foul Smelling Discharge Additional Instructions: If you experience any of the following, contact your healthcare provider. Bleeding that soaks a pad every hour for 2 hours Fever 100.4 or higher Unrelieved incision or abdominal pain Swelling, redness, discharge or bleeding from your incision or episiotomy site Your incision begins to separate Problems urinating (including inability to urinate or burning while urinating). Visual changes Severe headache Flu-like symptoms Pain or redness in one of both of your breasts Pain, warmth, tenderness or swelling in your legs, especially the calf area Frequent nausea and vomiting Symptoms of depression or anxiety If you experience any of the following, call 911 or go to the nearest Emergency Room. Chest pain Problems breathing Seizure activity Partial or complete paralysis of a body part, slurred speech, weakness or drooping of the face, or a sudden inability to walk or hold your balance Allergies/Adverse Reactions: Allergies No Known Allergies Allergy (Verified 04/02/18 10:34) Medications to take at Discharge vitamins no.42-folic acid 1.4 mg chew tablet,IR - DR,biphase 2 tab PO QDAY tab 09/04/17 Ranitidine HCl 150 mg PO BID 04/02/18 Please Follow Up With: Karolina Tolbert MD - [phone] When: Call to make an appointment with your doctor in 6 weeks. If you had elevated Blood pressure or 4th degree laceration you will need to be seen in 2 weeks. Primary Care Physician: Care Physician,No Primary [Primary Care Provider] - Test Results: Test results from this visit will be discussed in further detail at your follow-up appointment, if applicable.
--- NOTE | 2018-04-04 13:34 | DCINST_ITS ---
Discharge Diet: No Restrictions Discharge Activity: Return to Normal Activity, May not drive while taking narcotic pain medications., May Shower May resume sexual activity in: 4-6 weeks Call your doctor if your incision/area has: Continuous Slow Oozing, Sudden Increased Bleeding, Increased Pain/ Swelling, Increased Redness, Foul Smelling Discharge Additional Instructions: If you experience any of the following, contact your healthcare provider. * Bleeding that soaks a pad every hour for 2 hours * Fever 100.4 or higher * Unrelieved incision or abdominal pain * Swelling, redness, discharge or bleeding from your incision or episiotomy site * Your incision begins to separate * Problems urinating (including inability to urinate or burning while urinating). * Visual changes * Severe headache * Flu-like symptoms * Pain or redness in one of both of your breasts * Pain, warmth, tenderness or swelling in your legs, especially the calf area * Frequent nausea and vomiting * Symptoms of depression or anxiety If you experience any of the following, call 911 or go to the nearest Emergency Room. * Chest pain * Problems breathing * Seizure activity * Partial or complete paralysis of a body part, slurred speech, weakness or drooping of the face, or a sudden inability to walk or hold your balance Allergies/Adverse Reactions: Allergies No Known Allergies Allergy (Verified 04/02/18 10:34) Medications to take at Discharge vitamins no.42-folic acid 1.4 mg chew tablet,IR - DR,biphase 2 tab PO QDAY tab 09/04/17 Ranitidine HCl 150 mg PO BID 04/02/18 Please Follow Up With: Karolina Tolbert MD - [phone] When: Call to make an appointment with your doctor in 6 weeks. If you had elevated Blood pressure or 4th degree laceration you will need to be seen in 2 weeks. Primary Care Physician: Care Physician,No Primary [Primary Care Provider] - Test Results: Test results from this visit will be discussed in further detail at your follow- up appointment, if applicable.
[2018-04-04 14:00] VITALS: BP 117/78; PULSE 82; RESP 16; TEMP 36.2
== END 2018-04-04 16:05 | disposition home or self-care (01) | DRG 807 ==
PROVIDERS: Admitting Provider Obstetrics & Gynecology; Referring Provider Obstetrics & Gynecology; Visit Provider Obstetrics & Gynecology
DX: O41.03X0 Oligohydramnios, third trimester, not applicable or unspecified (principal); Z37.0 Single live birth; O99.013 Anemia complicating pregnancy, third trimester; D64.9 Anemia, unspecified; O70.1 Second degree perineal laceration during delivery; Z3A.38 38 weeks gestation of pregnancy
CPT/HCPCS: 59025; 59050; 85027; 86850; 86900; 99218; J7120; G0378; J2405